=== PATIENT | male | born 1980 | race African-American/Black ===

== ENCOUNTER 2025-06-01 12:11 | Emergency (ER) | payer OTHER, SELFPAY ==
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
[2025-06-01 12:43] VITALS: BP 135/80; PULSE 100; RESP 16; TEMP 36.8; O2SAT 100
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
--- NOTE | 2025-06-01 13:08 | ECG_ITS ---
Test Date: 2025-06-01 13:45:43 Measurements Intervals Holmes Rate: 101 P: 65 OH: 141 QRS: 70 QRSD: 76 T: 34 QT: 337 QTc: 438 Interpretive Statements SINUS TACHYCARDIA VOLTAGE CRITERIA FOR LVH BORDERLINE T WAVE ABNORMALITY- INFERIOR LEADS BORDERLINE ECG No previous ECG available for comparison Electronically Signed On 06-01-2025 14:07:37 CDT by Luan Gardiner D.O.
[2025-06-01] MEDS: HYDROcodone/acetaminophen (*CRX) 5-325 MG TABLET 1 TAB PO (13:46)
[2025-06-01] MEDS: diazePAM INJ (*CRX) 10 MG/2 ML SYRINGE 5 MG IV PUSH (13:48)
[2025-06-01 13:54] LABS: Add Urine Microscopic? YES; Appearance Urine Cloudy (Clear); Glucose Urine UA Negative (Negative); Leukocyte Esterase Ur Trace LEU/UL (Negative); Nitrate Urine Negative (Negative); Non Pathogenic Casts 0-2; Specific Grav Ur 1.026 (1.001-1.035)
[2025-06-01 13:56] LABS: Hematocrit 39.8 % (42.0-52.0); Hemoglobin 14.0 g/dL (14.0-18.0); Immature Granulocyte Percent A 0.2 % (0-0.5); Lymphocytes Absolute Auto 2.17 K/mm3 (0.9-3.2); Mean Corpuscular HGB Conc 35.2 g/dl (32-36); Mean Corpuscular Hemoglobin 33.3 pg (26-34); Mean Corpuscular Volume 94.8 fl (80-100); Nucleated Red Blood Cells Absolute Auto 0.000 K/mm3 (0.0-0.012); Nucleated Red Blood Cells Perc 0.0 % (0.0-0.2); Platelet Count Result 335 k/mm3 (150-375); Red Blood Count 4.20 M/mm3 (4.6-6.20); White Blood Count 6.0 K/mm3 (4.5-10.0)
[2025-06-01 14:01] LABS: Alanine Aminotransferase 63 U/L (6-50); Albumin Level 4.5 g/dL (3.5-5.1); Alkaline Phosphatase 162 U/L (38-126); Anion Gap 9 mmol/L (4-12); Aspartate Amino Transferase 59 U/L (17-59); Bilirubin,Total 0.6 mg/dL (0.2-1.3); Blood Urea Nitrogen 13 mg/dL (9-20); Calcium 9.6 mg/dL (8.4-10.2); Carbon Dioxide 26 mmol/L (22-30); Chloride 108 mmol/L (98-107); Estimated CRCL calculation 103 ml/min; Estimated Glomerular Filt Rate > 60; Glucose 118 mg/dL (65-110); Lipase 93 U/L (23-300); Potassium 3.6 mmol/L (3.4-5.0); Sodium 143 mmol/L (137-145); Total Protein 7.5 g/dL (6.3-8.2)
--- OUTSIDE RECORDS SUMMARY | 2025-06-01 14:30 | XMS_ITS | Encounter Summary ---
Author Organization [facility] Address 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
--- OUTSIDE RECORDS SUMMARY | 2025-06-01 14:31 | XMS_ITS | Encounter Summary ---
Author Organization [facility] Address [address] [place] [address] Care Team Providers Care Wound Specialist Name Role Phone Unavailable Primary Care Provider Unavailabl e Encounter Details Date Type Department Care Team (Late st Contact Info) Description 05/31/2025 External Device Data [facility]CTION Provider, Abstract NO ADDRESS ON FILE Social History Tobacco Use Types Packs/Day Years Used Date Smoking Tobacco: Every Day Cigarettes Smokeless Tobacco: Never Alcohol Use Standard Drinks/Week Comments No 0 (1 standard drink = 0.6 oz pur e alcohol) Sex and Gender Information Value Date Recorded Sex Assigned at Not on file Legal Sex Male 

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
--- OUTSIDE RECORDS SUMMARY | 2025-06-01 14:31 | XMS_ITS | Clinical Summary ---
Author Organization [facility] Address [address] [place] [address] Phone Care Team Providers Care Decontamination Technician Name Role Phone Unavailable Primary Care Provider Unavailabl e Allergies No known active allergies Medications No known medications Active Problems Problem Noted Date Diagnosed Date Accidental drug overdose 10/22/2019 Altered mental status 10/22/2019 Hypoxia 10/22/2019 Seizure 10/02/2018 Polysubstance abuse 10/02/2018 Acute mid back pain 10/02/2018 Post-ictal state 10/02/2018 Acute low back pain Encounters Date Type Department Care Team Description 06/01/2025 9:40 AM CDT Video Visit [facility] [address] [place] [address] Roslyn Amaya MD Opioid use disorder (Primary Dx) 05/31/2025 External Device Data [facility]STRACTION Provider, Abstract 05/30/2025 Telephone [facility] [address] [place] [address] Yanelis Ta Enrollment from Last 3 Months Social History Tobacco Use Types Packs/Day Years Used Date Smoking Tobacco: Every Day Cigarettes Smokeless Tobacco: Never Alcohol Use Standard Drinks/Week Comments No 0 (1 standard drink = 0.6 oz pur e alcohol) Sex and Gender Information Value Date Recorded Sex Assigned at Not on file 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 Gender Identity Not on file Sexual Orientation Not on file Last Filed Vital Signs Vital Sign Reading Time Taken Comments Blood Pressure 145/88 06/03/2020 11:42 PM CDT Pulse 93 06/03/2020 11:42 PM CDT Temperature 37.1 C (98.8 F) 06/03/2020 9:57 PM CDT Respiratory Rate 30 06/03/2020 11:42 PM CDT Oxygen Saturation 95% 06/03/2020 11:42 PM CDT Inhaled Oxygen Concentration - - Weight 77.1 kg (170 lb) 06/03/2020 9:57 PM CDT Height 185.4 cm (6' 1) 06/03/2020 9:57 PM CDT Body Mass Index 22.43 06/03/2020 9:57 PM CDT Plan of Treatment Health Maintenance Due Date Last Done Comments HPV VACCINES (1 - Male 3-dose series) 1997 DTAP/TDAP/TD VACCINES (1 - Tdap) 2001 HEPATITIS B VACCINES (2 of 3 - Hep B Twinrix 3-dose series) 04/23/2023 03/26/2023 Preventative Visit- Commercial 10/13/2024 INFLUENZA VACCINE (#1) 2025 Insurance [facility] Advance Directives For more information, please contact: [phone] * Full Code (Latest Code Status on File) Date Activated Date Inactivated Comments 10/02/2018 4:21 AM 10/02/2018 5:09 PM
--- OUTSIDE RECORDS SUMMARY | 2025-06-01 14:31 | XMS_ITS | Clinical Summary ---
Author Organization [facility] Address [address] [place] [address] Care Team Providers Care Learning And Development Manager Name Role Phone Unavailable Primary Care Provider Unavailabl e Source Comments [facility],non-owned Affiliates and Associated Physician Practices is amultiple site organization consisting of ambulatory clinics and hospital sitesin [place], [place], [place] and [place]. This disclosure is being madepursuant to the Care Everywhere program and may not contain all information available regarding this patient. Last updated 18.[facility] Allergies No known active allergies Medications * This document contains information received from the source organization and may not represent a complete record from that organization. * Be aware that medications may not be up to date on this document. Alwaysverify current medications with the patient. hydrOXYzine HCl (Atarax) 50 MG tablet Take 1 (one) tablet by mouth every 6 hours as needed 120 tablet 1 04/28/2025 3:57 PM CDT 04/28/2025 Active clonazePAM (KlonoPIN) 0.5 MG tabletIndicatio ns:Anxiety Take 1 (one) tablet by mouth 2 times daily Reasons: Feeling Anxious 60 tablet 04/28/2025 3:57 PM CDT 04/28/2025 Active gabapentin (Neurontin) 400 MG capsule Take 1 (one) capsule by mouth 3 times daily 90 capsule 1 04/28/2025 3:57 PM CDT 04/28/2025 Active DULoxetine (Cymbalta) 30 MG capsule Take 1 (one) capsule by mouth once daily 30 capsule 1 04/28/2025 3:57 PM CDT 04/29/2025 Active traZODone (Desyrel) 50 MG tablet Take 1 (one) tablet by mouth nightly as needed for Insomnia 30 tablet 1 04/28/2025 3:57 PM CDT 04/28/2025 Active ondansetron, disintegrating, (Zofran ODT) 4 MG tablet Take 1 (one) tablet by mouth every 6 hours as needed for Nausea/Vomiti ng. Allow tablet to dissolve on the tongue. 30 tablet 04/28/2025 3:57 PM CDT 04/28/2025 Active lisinopril (Prinivil; Zestril) 20 MG tablet Take 1 (one) tablet by mouth once daily . 30 tablet 1 04/28/2025 3:57 PM CDT 04/29/2025 Active amLODIPine (Norvasc) 10 MG tablet Take 1 (one) tablet by mouth once daily . 30 tablet 1 04/28/2025 3:57 PM CDT 04/29/2025 Active nicotine (Nicoderm CQ) 21 MG/24HR patchIndication s:Nicotine use Apply 1 (one) patch to skin once daily 30 patch 04/28/2025 3:57 PM CDT 04/29/2025 Active Active Problems Problem Noted Date Diagnosed Date Current episode of major dep ressive disorder without prior episode, unspecified depression episode severity 04/19/2025 Hepatitis C 04/17/2025 Assessment & Plan (04/18/2025 7:25 AM CDT): F/u ID outpatient Assessment & Plan (04/17/2025 2:18 PM CDT): F/u ID outpatient Primary hypertension 04/15/2025 Assessment & Plan (04/18/2025 7:25 AM CDT): Primary HTN possibly compounded by withdrawal Previously prescribed hydralazine and clonidine Plan Amlo 10, lisinopril 20. Titrate BP meds as needed Assessment & Plan (04/17/2025 2:16 PM CDT): Primary HTN possibly compounded by withdrawal Previously prescribed hydralazine and clonidine Plan Amlo 10, lisinopril 20. Titrate BP meds as needed Assessment & Plan (04/16/2025 11:34 AM CDT): Primary HTN possibly compounded by withdrawal Previously prescribed hydralazine and clonidine Plan Amlo 10, lisinopril 20. Titrate BP meds as needed Assessment & Plan (04/15/2025 1:49 PM CDT): Primary HTN possibly compounded by withdrawal Previously prescribed hydralazine and clonidine Plan Amlo 10, start lisinopril 20. Titrate BP meds as needed Benzodiazepine withdrawal without complication 0 04/15/2025 Assessment & Plan (04/18/2025 11:47 AM CDT): Chronic Fentanyl and xanax use PLAN: -follow psychiatric recommendations: Hold psychotropic medications for now. D/c to inpatient psych pending medical clearance. Prn haldol -suicide precaution w 1:1 observation -COWs, methadone 50mg, titrate methadone and continue to monitor qtc. Likely inc to 60mg 04/19 - CIWA for benzo withdrawal, due to chronic use and hx of withdrawal seizure we will schedule klonopin 1mg bid w plan to taper over 3 weeks w 05/08 being EOT -supportive care (PRN: gabapentin, Tylenol, clonidine, Flexeril, Bentyl, Benadryl, Zofran atarax prn) -seizure/fall precautions -thiamine 100 mg daily. folic acid 1 mg PO d /multivitamin p.o. daily -nicotine patch 7 mg daily -counseling cessation -social service/ manager rn case consult Assessment & Plan (04/17/2025 2:23 PM CDT): Chronic Fentanyl and xanax use PLAN: -follow psychiatric recommendations: Hold psychotropic medications for now. D/c to inpatient psych pending medical clearance -suicide precaution w 1:1 observation -COWs, methadone 50mg, titrate methadone and continue to monitor qtc - CIWA for benzo withdrawal, due to chronic use and hx of withdrawal seizure we will schedule xanax 1mg bid w plan to continue taper outpatient -supportive care (PRN: gabapentin, Tylenol, clonidine, Flexeril, Bentyl, Benadryl, Zofran ) /encourage p.o. fluid -seizure/fall precautions -thiamine 100 mg daily. folic acid 1 mg PO d /multivitamin p.o. daily -nicotine patch 7 mg daily -counseling cessation -social service/ manager rn case consult Assessment & Plan (04/16/2025 11:34 AM CDT): Chronic Fentanyl and xanax use PLAN: -follow psychiatric recommendations: Hold psychotropic medications for now. D/c to inpatient psych pending medical clearance -suicide precaution w 1:1 observation -COWs, methadone 40mg, titrate methadone and continue to monitor qtc - CIWA for benzo withdrawal, prn diazepam. Will consider the need to continue taper outpatient. -supportive care (PRN: gabapentin, Tylenol, clonidine, Flexeril, Bentyl, Benadryl, Zofran ) /encourage p.o. fluid -seizure/fall precautions -thiamine 100 mg daily. folic acid 1 mg PO d /multivitamin p.o. daily -nicotine patch 7 mg daily -counseling cessation -social service/ manager rn case consult Assessment & Plan (04/15/2025 1:49 PM CDT): Chronic Fentanyl and xanax use PLAN: -follow psychiatric recommendations: Hold psychotropic medications for now. D/c to inpatient psych pending medical clearance -suicide precaution w 1:1 observation -COWs, methadone 40mg, titrate methadone and continue to monitor qtc - CIWA for benzo withdrawal, prn diazepam -supportive care (PRN: gabapentin, Tylenol, clonidine, Flexeril, Bentyl, Benadryl, Zofran ) /encourage p.o. fluid -seizure/fall precautions -thiamine 100 mg daily. folic acid 1 mg PO d /multivitamin p.o. daily -nicotine patch 7 mg daily -counseling cessation -social service/ manager rn case consult Suicidal ideation 04/14/2025 Assessment & Plan (04/18/2025 11:47 AM CDT): Chronic Fentanyl and xanax use PLAN: -follow psychiatric recommendations: Hold psychotropic medications for now. D/c to inpatient psych pending medical clearance. Prn haldol -suicide precaution w 1:1 observation -COWs, methadone 50mg, titrate methadone and continue to monitor qtc. Likely inc to 60mg 78 - CIWA for benzo withdrawal, due to chronic use and hx of withdrawal seizure we will schedule klonopin 1mg bid w plan to taper over 3 weeks w 05/08 being EOT -supportive care (PRN: gabapentin, Tylenol, clonidine, Flexeril, Bentyl, Benadryl, Zofran atarax prn) -seizure/fall precautions -thiamine 100 mg daily. folic acid 1 mg PO d /multivitamin p.o. daily -nicotine patch 7 mg daily -counseling cessation -social service/ manager rn case consult Assessment & Plan (04/17/2025 2:23 PM CDT): Chronic Fentanyl and xanax use PLAN: -follow psychiatric recommendations: Hold psychotropic medications for now. D/c to inpatient psych pending medical clearance -suicide precaution w 1:1 observation -COWs, methadone 50mg, titrate methadone and continue to monitor qtc - CIWA for benzo withdrawal, due to chronic use and hx of withdrawal seizure we will schedule xanax 1mg bid w plan to continue taper outpatient -supportive care (PRN: gabapentin, Tylenol, clonidine, Flexeril, Bentyl, Benadryl, Zofran ) /encourage p.o. fluid -seizure/fall precautions -thiamine 100 mg daily. folic acid 1 mg PO d /multivitamin p.o. daily -nicotine patch 7 mg daily -counseling cessation -social service/ manager rn case consult Assessment & Plan (04/16/2025 11:34 AM CDT): Chronic Fentanyl and xanax use PLAN: -follow psychiatric recommendations: Hold psychotropic medications for now. D/c to inpatient psych pending medical clearance -suicide precaution w 1:1 observation -COWs, methadone 40mg, titrate methadone and continue to monitor qtc - CIWA for benzo withdrawal, prn diazepam. Will consider the need to continue taper outpatient. -supportive care (PRN: gabapentin, Tylenol, clonidine, Flexeril, Bentyl, Benadryl, Zofran ) /encourage p.o. fluid -seizure/fall precautions -thiamine 100 mg daily. folic acid 1 mg PO d /multivitamin p.o. daily -nicotine patch 7 mg daily -counseling cessation -social service/ manager rn case consult Assessment & Plan (04/15/2025 1:49 PM CDT): Chronic Fentanyl and xanax use PLAN: -follow psychiatric recommendations: Hold psychotropic medications for now. D/c to inpatient psych pending medical clearance -suicide precaution w 1:1 observation -COWs, methadone 40mg, titrate methadone and continue to monitor qtc - CIWA for benzo withdrawal, prn diazepam -supportive care (PRN: gabapentin, Tylenol, clonidine, Flexeril, Bentyl, Benadryl, Zofran ) /encourage p.o. fluid -seizure/fall precautions -thiamine 100 mg daily. folic acid 1 mg PO d /multivitamin p.o. daily -nicotine patch 7 mg daily -counseling cessation -social service/ manager rn case consult Assessment & Plan (04/14/2025 2:42 AM CDT): -Psychiatry consulted in ED -admitted to medical service for 24 hour med observation/stabilization before transferred to psychiatric services PLAN: -follow psychiatric recommendations: Hold psychotropic medications for now. -suicide precaution w 1:1 observation -monitor for opioid withdrawal -supportive care (PRN: gabapentin, Tylenol, clonidine, Flexeril, Bentyl, Benadryl, Zofran ) /encourage p.o. fluid -seizure/fall precautions -NS 0.9%w multivitamin/ thiamine/ folic acid IV x 1 dose, followed by : -thiamine 100 mg PO D -folic acid 1 mg PO d /multivitamin p.o. daily -nicotine patch 7 mg daily -counseling cessation -consider addiction medicine consult in a.m. -social service/ manager rn case consult -UA drug screen SOB (shortness of breath) 04/14/2025 Assessment & Plan (04/18/2025 11:47 AM CDT): -hemodynamically stable, afebrile, no leukocytosis, on room air -BNP 64/ troponin nr x 2 . EKG NSR. TTE unremarkable CTM Assessment & Plan (04/17/2025 2:16 PM CDT): -hemodynamically stable, afebrile, no leukocytos -BNP 64/ troponin nr x 2 . EKG NSR. TTE unremarkable CTM Assessment & Plan (04/16/2025 11:34 AM CDT): -hemodynamically stable, afebrile, no leukocytosis; JESSICA 49 -BNP 64/ troponin nr x 2 . EKG NSR PLAN TTE to evaluate dyspnea on exertion : Assessment & Plan (04/15/2025 1:49 PM CDT): -hemodynamically stable, afebrile, no leukocytosis; JESSICA 47 -BNP 64/ troponin nr x 2 . EKG NSR PLAN TTE to evaluate dyspnea on exertion : Assessment & Plan (04/14/2025 2:45 AM CDT): -hemodynamically stable, afebrile, no leukocytosis; JESSICA 47 -BNP 64/ troponin nr x 2 - DDX : Cardiac ( pericarditis/ myocardial/ ACS) vs ID ( bacterial vs viral vs vs fungal ) vs GI vs musculoskeletal - CP positional/ worse with deep breathing and coughing- has hx of aspiration pneumonia/ empyema -would not exclude infectious process --Hypokalemia ( K 2.7) - s/p IV K mEq40 x 1 dose, K mEq 40 PO x 1 dose in ED -Hypochloremia ( Cl 97) -s/p NS 0.9% IV bolus in ED -hypoglycemia ( BG 64) PLAN: Chest pain, unspecified type 04/14/2025 Assessment & Plan (04/18/2025 11:47 AM CDT): -hemodynamically stable, afebrile, no leukocytosis, on room air -BNP 64/ troponin nr x 2 . EKG NSR. TTE unremarkable CTM Assessment & Plan (04/17/2025 2:16 PM CDT): -hemodynamically stable, afebrile, no leukocytos -BNP 64/ troponin nr x 2 . EKG NSR. TTE unremarkable CTM Assessment & Plan (04/16/2025 11:34 AM CDT): -hemodynamically stable, afebrile, no leukocytosis; JESSICA 47 -BNP 64/ troponin nr x 2 . EKG NSR PLAN TTE to evaluate dyspnea on exertion : Assessment & Plan (04/15/2025 1:49 PM CDT): -hemodynamically stable, afebrile, no leukocytosis; JESSICA 47 -BNP 64/ troponin nr x 2 . EKG NSR PLAN TTE to evaluate dyspnea on exertion : Assessment & Plan (04/14/2025 2:45 AM CDT): -hemodynamically stable, afebrile, no leukocytosis; JESSICA 47 -BNP 64/ troponin nr x 2 - DDX : Cardiac ( pericarditis/ myocardial/ ACS) vs ID ( bacterial vs viral vs vs fungal ) vs GI vs musculoskeletal - CP positional/ worse with deep breathing and coughing- has hx of aspiration pneumonia/ empyema -would not exclude infectious process --Hypokalemia ( K 2.7) - s/p IV K mEq40 x 1 dose, K mEq 40 PO x 1 dose in ED -Hypochloremia ( Cl 97) -s/p NS 0.9% IV bolus in ED -hypoglycemia ( BG 64) PLAN: OD (overdose of drug), inten tional self-harm, initial encounter 04/14/2025 Assessment & Plan (04/18/2025 11:47 AM CDT): Chronic Fentanyl and xanax use PLAN: -follow psychiatric recommendations: Hold psychotropic medications for now. D/c to inpatient psych pending medical clearance. Prn haldol -suicide precaution w 1:1 observation -COWs, methadone 50mg, titrate methadone and continue to monitor qtc. Likely inc to 60mg 04/19 - CIWA for benzo withdrawal, due to chronic use and hx of withdrawal seizure we will schedule klonopin 1mg bid w plan to taper over 3 weeks w 05/08 being EOT -supportive care (PRN: gabapentin, Tylenol, clonidine, Flexeril, Bentyl, Benadryl, Zofran atarax prn) -seizure/fall precautions -thiamine 100 mg daily. folic acid 1 mg PO d /multivitamin p.o. daily -nicotine patch 7 mg daily -counseling cessation -social service/ manager rn case consult Assessment & Plan (04/17/2025 2:23 PM CDT): Chronic Fentanyl and xanax use PLAN: -follow psychiatric recommendations: Hold psychotropic medications for now. D/c to inpatient psych pending medical clearance -suicide precaution w 1:1 observation -COWs, methadone 50mg, titrate methadone and continue to monitor qtc - CIWA for benzo withdrawal, due to chronic use and hx of withdrawal seizure we will schedule xanax 1mg bid w plan to continue taper outpatient -supportive care (PRN: gabapentin, Tylenol, clonidine, Flexeril, Bentyl, Benadryl, Zofran ) /encourage p.o. fluid -seizure/fall precautions -thiamine 100 mg daily. folic acid 1 mg PO d /multivitamin p.o. daily -nicotine patch 7 mg daily -counseling cessation -social service/ manager rn case consult Assessment & Plan (04/16/2025 11:34 AM CDT): Chronic Fentanyl and xanax use PLAN: -follow psychiatric recommendations: Hold psychotropic medications for now. D/c to inpatient psych pending medical clearance -suicide precaution w 1:1 observation -COWs, methadone 40mg, titrate methadone and continue to monitor qtc - CIWA for benzo withdrawal, prn diazepam. Will consider the need to continue taper outpatient. -supportive care (PRN: gabapentin, Tylenol, clonidine, Flexeril, Bentyl, Benadryl, Zofran ) /encourage p.o. fluid -seizure/fall precautions -thiamine 100 mg daily. folic acid 1 mg PO d /multivitamin p.o. daily -nicotine patch 7 mg daily -counseling cessation -social service/ manager rn case consult Assessment & Plan (04/15/2025 1:49 PM CDT): Chronic Fentanyl and xanax use PLAN: -follow psychiatric recommendations: Hold psychotropic medications for now. D/c to inpatient psych pending medical clearance -suicide precaution w 1:1 observation -COWs, methadone 40mg, titrate methadone and continue to monitor qtc - CIWA for benzo withdrawal, prn diazepam -supportive care (PRN: gabapentin, Tylenol, clonidine, Flexeril, Bentyl, Benadryl, Zofran ) /encourage p.o. fluid -seizure/fall precautions -thiamine 100 mg daily. folic acid 1 mg PO d /multivitamin p.o. daily -nicotine patch 7 mg daily -counseling cessation -social service/ manager rn case consult Assessment & Plan (04/14/2025 2:42 AM CDT): -Psychiatry consulted in ED -admitted to medical service for 24 hour med observation/stabilization before transferred to psychiatric services PLAN: -follow psychiatric recommendations: Hold psychotropic medications for now. -suicide precaution w 1:1 observation -monitor for opioid withdrawal -supportive care (PRN: gabapentin, Tylenol, clonidine, Flexeril, Bentyl, Benadryl, Zofran ) /encourage p.o. fluid -seizure/fall precautions -NS 0.9%w multivitamin/ thiamine/ folic acid IV x 1 dose, followed by : -thiamine 100 mg PO D -folic acid 1 mg PO d /multivitamin p.o. daily -nicotine patch 7 mg daily -counseling cessation -consider addiction medicine consult in a.m. -social service/ manager rn case consult -UA drug screen Electrolyte imbalance 04/14/2025 Drug abuse 04/14/2025 Assessment & Plan (04/18/2025 11:47 AM CDT): Chronic Fentanyl and xanax use PLAN: -follow psychiatric recommendations: Hold psychotropic medications for now. D/c to inpatient psych pending medical clearance. Prn haldol -suicide precaution w 1:1 observation -COWs, methadone 50mg, titrate methadone and continue to monitor qtc. Likely inc to 60mg 04/19 - CIWA for benzo withdrawal, due to chronic use and hx of withdrawal seizure we will schedule klonopin 1mg bid w plan to taper over 3 weeks w 05/08 being EOT -supportive care (PRN: gabapentin, Tylenol, clonidine, Flexeril, Bentyl, Benadryl, Zofran atarax prn) -seizure/fall precautions -thiamine 100 mg daily. folic acid 1 mg PO d /multivitamin p.o. daily -nicotine patch 7 mg daily -counseling cessation -social service/ manager rn case consult Assessment & Plan (04/17/2025 2:23 PM CDT): Chronic Fentanyl and xanax use PLAN: -follow psychiatric recommendations: Hold psychotropic medications for now. D/c to inpatient psych pending medical clearance -suicide precaution w 1:1 observation -COWs, methadone 50mg, titrate methadone and continue to monitor qtc - CIWA for benzo withdrawal, due to chronic use and hx of withdrawal seizure we will schedule xanax 1mg bid w plan to continue taper outpatient -supportive care (PRN: gabapentin, Tylenol, clonidine, Flexeril, Bentyl, Benadryl, Zofran ) /encourage p.o. fluid -seizure/fall precautions -thiamine 100 mg daily. folic acid 1 mg PO d /multivitamin p.o. daily -nicotine patch 7 mg daily -counseling cessation -social service/ manager rn case consult Assessment & Plan (04/16/2025 11:34 AM CDT): Chronic Fentanyl and xanax use PLAN: -follow psychiatric recommendations: Hold psychotropic medications for now. D/c to inpatient psych pending medical clearance -suicide precaution w 1:1 observation -COWs, methadone 40mg, titrate methadone and continue to monitor qtc - CIWA for benzo withdrawal, prn diazepam. Will consider the need to continue taper outpatient. -supportive care (PRN: gabapentin, Tylenol, clonidine, Flexeril, Bentyl, Benadryl, Zofran ) /encourage p.o. fluid -seizure/fall precautions -thiamine 100 mg daily. folic acid 1 mg PO d /multivitamin p.o. daily -nicotine patch 7 mg daily -counseling cessation -social service/ manager rn case consult Assessment & Plan (04/15/2025 1:49 PM CDT): Chronic Fentanyl and xanax use PLAN: -follow psychiatric recommendations: Hold psychotropic medications for now. D/c to inpatient psych pending medical clearance -suicide precaution w 1:1 observation -COWs, methadone 40mg, titrate methadone and continue to monitor qtc - CIWA for benzo withdrawal, prn diazepam -supportive care (PRN: gabapentin, Tylenol, clonidine, Flexeril, Bentyl, Benadryl, Zofran ) /encourage p.o. fluid -seizure/fall precautions -thiamine 100 mg daily. folic acid 1 mg PO d /multivitamin p.o. daily -nicotine patch 7 mg daily -counseling cessation -social service/ manager rn case consult Assessment & Plan (04/14/2025 2:42 AM CDT): -Psychiatry consulted in ED -admitted to medical service for 24 hour med observation/stabilization before transferred to psychiatric services PLAN: -follow psychiatric recommendations: Hold psychotropic medications for now. -suicide precaution w 1:1 observation -monitor for opioid withdrawal -supportive care (PRN: gabapentin, Tylenol, clonidine, Flexeril, Bentyl, Benadryl, Zofran ) /encourage p.o. fluid -seizure/fall precautions -NS 0.9%w multivitamin/ thiamine/ folic acid IV x 1 dose, followed by : -thiamine 100 mg PO D -folic acid 1 mg PO d /multivitamin p.o. daily -nicotine patch 7 mg daily -counseling cessation -consider addiction medicine consult in a.m. -social service/ manager rn case consult -UA drug screen Nicotine use 04/14/2025 Assessment & Plan (04/18/2025 11:47 AM CDT): Chronic Fentanyl and xanax use PLAN: -follow psychiatric recommendations: Hold psychotropic medications for now. D/c to inpatient psych pending medical clearance. Prn haldol -suicide precaution w 1:1 observation -COWs, methadone 50mg, titrate methadone and continue to monitor qtc. Likely inc to 60mg 04/19 - CIWA for benzo withdrawal, due to chronic use and hx of withdrawal seizure we will schedule klonopin 1mg bid w plan to taper over 3 weeks w 05/08 being EOT -supportive care (PRN: gabapentin, Tylenol, clonidine, Flexeril, Bentyl, Benadryl, Zofran atarax prn) -seizure/fall precautions -thiamine 100 mg daily. folic acid 1 mg PO d /multivitamin p.o. daily -nicotine patch 7 mg daily -counseling cessation -social service/ manager rn case consult Assessment & Plan (04/17/2025 2:23 PM CDT): Chronic Fentanyl and xanax use PLAN: -follow psychiatric recommendations: Hold psychotropic medications for now. D/c to inpatient psych pending medical clearance -suicide precaution w 1:1 observation -COWs, methadone 50mg, titrate methadone and continue to monitor qtc - CIWA for benzo withdrawal, due to chronic use and hx of withdrawal seizure we will schedule xanax 1mg bid w plan to continue taper outpatient -supportive care (PRN: gabapentin, Tylenol, clonidine, Flexeril, Bentyl, Benadryl, Zofran ) /encourage p.o. fluid -seizure/fall precautions -thiamine 100 mg daily. folic acid 1 mg PO d /multivitamin p.o. daily -nicotine patch 7 mg daily -counseling cessation -social service/ manager rn case consult Assessment & Plan (04/16/2025 11:34 AM CDT): Chronic Fentanyl and xanax use PLAN: -follow psychiatric recommendations: Hold psychotropic medications for now. D/c to inpatient psych pending medical clearance -suicide precaution w 1:1 observation -COWs, methadone 40mg, titrate methadone and continue to monitor qtc - CIWA for benzo withdrawal, prn diazepam. Will consider the need to continue taper outpatient. -supportive care (PRN: gabapentin, Tylenol, clonidine, Flexeril, Bentyl, Benadryl, Zofran ) /encourage p.o. fluid -seizure/fall precautions -thiamine 100 mg daily. folic acid 1 mg PO d /multivitamin p.o. daily -nicotine patch 7 mg daily -counseling cessation -social service/ manager rn case consult Assessment & Plan (04/15/2025 1:49 PM CDT): Chronic Fentanyl and xanax use PLAN: -follow psychiatric recommendations: Hold psychotropic medications for now. D/c to inpatient psych pending medical clearance -suicide precaution w 1:1 observation -COWs, methadone 40mg, titrate methadone and continue to monitor qtc - CIWA for benzo withdrawal, prn diazepam -supportive care (PRN: gabapentin, Tylenol, clonidine, Flexeril, Bentyl, Benadryl, Zofran ) /encourage p.o. fluid -seizure/fall precautions -thiamine 100 mg daily. folic acid 1 mg PO d /multivitamin p.o. daily -nicotine patch 7 mg daily -counseling cessation -social service/ manager rn case consult Assessment & Plan (04/14/2025 2:42 AM CDT): -Psychiatry consulted in ED -admitted to medical service for 24 hour med observation/stabilization before transferred to psychiatric services PLAN: -follow psychiatric recommendations: Hold psychotropic medications for now. -suicide precaution w 1:1 observation -monitor for opioid withdrawal -supportive care (PRN: gabapentin, Tylenol, clonidine, Flexeril, Bentyl, Benadryl, Zofran ) /encourage p.o. fluid -seizure/fall precautions -NS 0.9%w multivitamin/ thiamine/ folic acid IV x 1 dose, followed by : -thiamine 100 mg PO D -folic acid 1 mg PO d /multivitamin p.o. daily -nicotine patch 7 mg daily -counseling cessation -consider addiction medicine consult in a.m. -social service/ manager rn case consult -UA drug screen Episode of recurrent major depressive disorder 0 04/14/2025 Assessment & Plan (04/18/2025 11:47 AM CDT): Chronic Fentanyl and xanax use PLAN: -follow psychiatric recommendations: Hold psychotropic medications for now. D/c to inpatient psych pending medical clearance. Prn haldol -suicide precaution w 1:1 observation -COWs, methadone 50mg, titrate methadone and continue to monitor qtc. Likely inc to 60mg 04/19 - CIWA for benzo withdrawal, due to chronic use and hx of withdrawal seizure we will schedule klonopin 1mg bid w plan to taper over 3 weeks w 05/08 being EOT -supportive care (PRN: gabapentin, Tylenol, clonidine, Flexeril, Bentyl, Benadryl, Zofran atarax prn) -seizure/fall precautions -thiamine 100 mg daily. folic acid 1 mg PO d /multivitamin p.o. daily -nicotine patch 7 mg daily -counseling cessation -social service/ manager rn case consult Assessment & Plan (04/17/2025 2:23 PM CDT): Chronic Fentanyl and xanax use PLAN: -follow psychiatric recommendations: Hold psychotropic medications for now. D/c to inpatient psych pending medical clearance -suicide precaution w 1:1 observation -COWs, methadone 50mg, titrate methadone and continue to monitor qtc - CIWA for benzo withdrawal, due to chronic use and hx of withdrawal seizure we will schedule xanax 1mg bid w plan to continue taper outpatient -supportive care (PRN: gabapentin, Tylenol, clonidine, Flexeril, Bentyl, Benadryl, Zofran ) /encourage p.o. fluid -seizure/fall precautions -thiamine 100 mg daily. folic acid 1 mg PO d /multivitamin p.o. daily -nicotine patch 7 mg daily -counseling cessation -social service/ manager rn case consult Assessment & Plan (04/16/2025 11:34 AM CDT): Chronic Fentanyl and xanax use PLAN: -follow psychiatric recommendations: Hold psychotropic medications for now. D/c to inpatient psych pending medical clearance -suicide precaution w 1:1 observation -COWs, methadone 40mg, titrate methadone and continue to monitor qtc - CIWA for benzo withdrawal, prn diazepam. Will consider the need to continue taper outpatient. -supportive care (PRN: gabapentin, Tylenol, clonidine, Flexeril, Bentyl, Benadryl, Zofran ) /encourage p.o. fluid -seizure/fall precautions -thiamine 100 mg daily. folic acid 1 mg PO d /multivitamin p.o. daily -nicotine patch 7 mg daily -counseling cessation -social service/ manager rn case consult Assessment & Plan (04/15/2025 1:49 PM CDT): Chronic Fentanyl and xanax use PLAN: -follow psychiatric recommendations: Hold psychotropic medications for now. D/c to inpatient psych pending medical clearance -suicide precaution w 1:1 observation -COWs, methadone 40mg, titrate methadone and continue to monitor qtc - CIWA for benzo withdrawal, prn diazepam -supportive care (PRN: gabapentin, Tylenol, clonidine, Flexeril, Bentyl, Benadryl, Zofran ) /encourage p.o. fluid -seizure/fall precautions -thiamine 100 mg daily. folic acid 1 mg PO d /multivitamin p.o. daily -nicotine patch 7 mg daily -counseling cessation -social service/ manager rn case consult Assessment & Plan (04/14/2025 2:42 AM CDT): -Psychiatry consulted in ED -admitted to medical service for 24 hour med observation/stabilization before transferred to psychiatric services PLAN: -follow psychiatric recommendations: Hold psychotropic medications for now. -suicide precaution w 1:1 observation -monitor for opioid withdrawal -supportive care (PRN: gabapentin, Tylenol, clonidine, Flexeril, Bentyl, Benadryl, Zofran ) /encourage p.o. fluid -seizure/fall precautions -NS 0.9%w multivitamin/ thiamine/ folic acid IV x 1 dose, followed by : -thiamine 100 mg PO D -folic acid 1 mg PO d /multivitamin p.o. daily -nicotine patch 7 mg daily -counseling cessation -consider addiction medicine consult in a.m. -social service/ manager rn case consult -UA drug screen Hypokalemia 04/14/2025 Assessment & Plan (04/16/2025 11:34 AM CDT): -hemodynamically stable, afebrile, no leukocytosis; JESSICA 47 -BNP 64/ troponin nr x 2 . EKG NSR PLAN TTE to evaluate dyspnea on exertion : Assessment & Plan (04/15/2025 1:49 PM CDT): -hemodynamically stable, afebrile, no leukocytosis; JESSICA 47 -BNP 64/ troponin nr x 2 . EKG NSR PLAN TTE to evaluate dyspnea on exertion : Assessment & Plan (04/14/2025 2:45 AM CDT): -hemodynamically stable, afebrile, no leukocytosis; JESSICA 47 -BNP 64/ troponin nr x 2 - DDX : Cardiac ( pericarditis/ myocardial/ ACS) vs ID ( bacterial vs viral vs vs fungal ) vs GI vs musculoskeletal - CP positional/ worse with deep breathing and coughing- has hx of aspiration pneumonia/ empyema -would not exclude infectious process --Hypokalemia ( K 2.7) - s/p IV K mEq40 x 1 dose, K mEq 40 PO x 1 dose in ED -Hypochloremia ( Cl 97) -s/p NS 0.9% IV bolus in ED -hypoglycemia ( BG 64) PLAN: Suicide attempt 08/02/2019 Resolved Problems Problem Noted Date Diagnosed Date Resolved Date Hypoglycemia 04/14/2025 04/17/2025 Assessment & Plan (04/16/2025 11:34 AM CDT): -hemodynamically stable, afebrile, no leukocytosis; JESSICA 47 -BNP 64/ troponin nr x 2 . EKG NSR PLAN TTE to evaluate dyspnea on exertion : Assessment & Plan (04/15/2025 1:49 PM CDT): -hemodynamically stable, afebrile, no leukocytosis; JESSICA 47 -BNP 64/ troponin nr x 2 . EKG NSR PLAN TTE to evaluate dyspnea on exertion : Assessment & Plan (04/14/2025 2:45 AM CDT): -hemodynamically stable, afebrile, no leukocytosis; JESSICA 47 -BNP 64/ troponin nr x 2 - DDX : Cardiac ( pericarditis/ myocardial/ ACS) vs ID ( bacterial vs viral vs vs fungal ) vs GI vs musculoskeletal - CP positional/ worse with deep breathing and coughing- has hx of aspiration pneumonia/ empyema -would not exclude infectious process --Hypokalemia ( K 2.7) - s/p IV K mEq40 x 1 dose, K mEq 40 PO x 1 dose in ED -Hypochloremia ( Cl 97) -s/p NS 0.9% IV bolus in ED -hypoglycemia ( BG 64) PLAN: Encounters * This document contains information received from the source organization and may not represent a complete record from that organization. Date Type Department Care Team Description 06/01/2025 Travel 04/13/2025 8:59 PM CDT - 04/19/2025 4:18 PM CDT Hospital Encounter [facility] [address] ACUTE [address] [place] [address] Daron Gray MD Lorber, Steven A, MD Majeed, MD Albino Marks Akrin, MD Syed, Tatiana Kang MD Emergency Medicine Discharge Disposition: Psychiatric Hospital or Unit 04/13/2025 Travel from Last 3 Months Family History Medical History Relation Name Comments Schizophrenia Brother Hypertension Mother Relation Name Status Comments Brother Mother Social History Tobacco Use Types Packs/Day Years Used Date Smoking Tobacco: Every Day Cigarettes Smokeless Tobacco: Never Tobacco Cessation:Ready to Q uit: Not Asked; Counseling Given: Not Answered Alcohol Use Standard Drinks/Week Comments Yes 0 (1 standard drink = 0.6 oz pur e alcohol) occasional AUDIT-C Answer Date Recorded Q1: How often do you have a drink containing alcohol? Never 04/19/2025 Q2: How many drinks containi ng alcohol do you have on a typical day when you are drinking? Patient does not drink Q3: How often do you have si x or more drinks on one occasion? Never 04/19/2025 Overall Financial Resource Strain (CARDIA) Answe r Date Recorded How hard is it for you to pa y for the very basics like food, housing, medical care, and heating? Not very hard 04/19/2025 [facility] Occupat ional [facility] - Occupational Stress Questionnaire Answer Date Recorded Do you feel stress - tense, restless, nervous, or anxious, or unable to sleep at night because your mind is troubled all the time - these days? To some extent 04/19/2025 Hunger Vital Sign Answer Date Recorded Within the past 12 months, y ou worried that your food would run out before you got the money to buy more. Never true 04/19/20 25 Within the past 12 months, t he food you bought just didn't last and you didn't have money to get more. Never true 04/19/2025 PRAPARE - Transportation Answer Date Re corded In the past 12 months, has l ack of transportation kept you from medical appointments or from getting medications? No 05/2025 In the past 12 months, has l ack of transportation kept you from meetings, work, or from getting things needed for daily living? No 04/19/2025 Housing Stability Vital Sign Answer Josiah e Recorded In the last 12 months, was t here a time when you were not able to pay the mortgage or rent on time? No 04/19/2025 In the past 12 months, how m any times have you moved where you were living? 1 04/19/2025 At any time in the past [address] [facility], were you homeless or living in a fdc (including now)? No 04/19/2025 Sex and Gender Information Value Date Recorded Sex Assigned at Male 04/16/2025 2:44 AM CDT Legal Sex Male 5:33 AM [employer] Gender Identity Male 04/16/2025 2:44 AM CDT Sexual Orientation Straight 04/16/2025 2: 44 AM CDT Last Filed Vital Signs Vital Sign Reading Time Taken Comments Blood Pressure 113/82 04/29/2025 7:23 AM CDT Pulse 73 04/29/2025 7:23 AM CDT Temperature 36 C (96.8 F) 04/29/2025 7:23 AM CDT Respiratory Rate 18 04/29/2025 7:23 AM CDT Oxygen Saturation 99% 04/29/2025 7:23 AM CDT Inhaled Oxygen Concentration - - Weight 81.7 kg (180 lb 3.2 oz) 04/24/2025 8:06 A M CDT Height 185.4 cm (6' 1) 04/19/2025 4:21 PM CDT Body Mass Index 23.77 04/19/2025 4:21 PM CDT Plan of Treatment Upcoming Encounters Date Type Department Care Team (Late st Contact Info) Description 06/02/2025 1:45 PM CDT Office Visit [facility] - Internal Med [address] [facility] [place] [id number] Hari Stiles MD [address] [facility] [place] [address] Health Maintenance Due Date Last Done Comments DTAP/TDAP/TD VACCINES (1 - Tdap) 2001 HEPATITIS B VACCINE (1 of 3 - 19+ 3-dose series) 2001 PNEUMOCOCCAL VACCINE (1 of 2 - PCV) 2001 HPV VACCINE (1 - 3-dose SCDM series) 2009 COVID-19 VACCINE (1 - season) 2024 DEPRESSION SCREENING 10/13/2024 INFLUENZA VACCINE (#1) 2025 07/13/2015 LIPID TESTING 04/16/2030 04/16/2025 ZOSTER VACCINE (1 of 2) 2032 HIV SCREENING Completed 08/02/2019 HEPATITIS C SCREENING Completed 04/17/2025 , 04/14/2025, 04/14/2025, Additional history exists HIB VACCINE Aged Out No longer eligi ble based on patient's age to complete this topic MENINGOCOCCAL (Group B) VACCINE SHARED DECISION-MAKING Aged Out No longer eligible based on patient's age to complete this topic MENINGOCOCCAL GROUPS A/C/Y/W VACCINE Aged Out No longer eligible based on patient's age to complete this topic Procedures Procedure Name Priority Date/Time Associated Diagnosis Comments EKG 12-LEAD Routine 04/19/2025 10:35 AM CDT Suicidal ideation OD (overdose of drug), intentional self-harm, initial encounter ([facility]) PHOSPHORUS BLOOD Routine 04/19/2025 2:19 AM CDT MAGNESIUM BLOOD Routine 04/19/2025 2:19 AM CDT BASIC METABOLIC PANEL (CALCIUM TOTAL) AM Draw 04/19/2025 2:19 AM CDT GLUCOSE - POINT OF CARE Routine 04/17/2025 4:31 PM CDT GLUCOSE - POINT OF CARE Routine 04/17/2025 11:49 AM CDT EKG 12-LEAD Routine 04/17/2025 11:13 AM CDT Suicidal ideation MAGNESIUM BLOOD Routine 04/17/2025 7:49 AM CDT CBC W/O DIFFERENTIAL AM Draw 04/17/2025 7:49 AM CDT GLUCOSE - POINT OF CARE Routine 04/17/2025 6:06 AM CDT GLUCOSE - POINT OF CARE Routine 04/17/2025 12:18 AM CDT GLUCOSE - POINT OF CARE Routine 04/16/2025 5:30 PM CDT T4 FREE Routine 04/16/2025 12:11 PM CDT TSH REFLEX FREE T4 Routine 04/16/2025 12 :11 PM CDT PHOSPHORUS BLOOD Routine 04/16/2025 12:1 1 PM CDT MAGNESIUM BLOOD Routine 04/16/2025 12:11 PM CDT LIPID PROFILE Routine 04/16/2025 12:11 PM CDT BASIC METABOLIC PANEL (CALCIUM TOTAL) Routine 04/16/2025 12:11 PM CDT GLUCOSE - POINT OF CARE Routine 04/16/2025 11:47 AM CDT ECHO COMPLETE Routine 04/16/2025 10:49 AM CDT Chest pain, unspecified type GLUCOSE - POINT OF CARE Routine 04/16/2025 5:36 AM CDT GLUCOSE - POINT OF CARE Routine 04/15/2025 11:33 PM CDT GLUCOSE - POINT OF CARE Routine 04/15/2025 6:31 PM CDT GLUCOSE - POINT OF CARE Routine 04/15/2025 6:05 PM CDT GLUCOSE - POINT OF CARE Routine 04/15/2025 11:56 AM CDT EKG 12-LEAD Routine 04/15/2025 11:32 AM CDT Suicidal ideation OD (overdose of drug), intentional self-harm, initial encounter ([facility]) CBC W/O DIFFERENTIAL AM Draw 04/15/2025 3:44 AM CDT HEPATITIS C RNA QUANTITATIVE Routine 04/14/2025 3:25 PM CDT HEPATITIS C AB SCREEN RFLX NAAT QUANT Routine 04/14/2025 3:25 PM CDT CARDIAC EKG ORDER 04/14/2025 11: 09 AM CDT B-TYPE NATRIURETIC PEPTIDE STAT 04/14/2025 5:09 AM CDT URINALYSIS REFLEX TO MICROSCOPIC NO CULTURE STAT 04/14/2025 4:42 AM CDT URINE DRUG SCREEN IMMUNOASSAY STAT 04/14/2025 4:42 AM CDT PROCALCITONIN LEVEL STAT 04/14/2025 4 :39 AM CDT HEMOGLOBIN A1C QUOC 04/14/2025 4:39 AM CDT PT-INR [facility] STAT 04/14/2025 4:39 AM CDT CBC W/O DIFFERENTIAL STAT 04/14/2025 4:39 AM CDT LACTIC ACID BLOOD STAT 04/14/2025 4:[address] CHEST ABDOMEN PELVIS W CONT Routine 04/14/2025 3:01 AM CDT Chest pain, unspecified type Suicidal ideation SOB (shortness of breath) OD (overdose of drug), intentional self-harm, initial encounter ([facility]) ALCOHOL ETHYL BLOOD STAT 04/13/2025 8 :45 PM CDT B-TYPE NATRIURETIC PEPTIDE STAT 04/13/2025 8:45 PM CDT PT-INR [facility] STAT 04/13/2025 8:45 PM CDT MAGNESIUM BLOOD STAT 04/13/2025 8:45 PM CDT TROPONIN-I HIGH SENSITIVE STAT 04/13/2025 8:45 PM CDT COMPREHENSIVE METABOLIC PANEL STAT 04/13/2025 8:45 PM CDT CBC W AUTO DIFFERENTIAL STAT 04/13/2025 8:45 PM CDT XR CHEST 1VW PORTABLE STAT 04/13/2025 8:01 PM CDT Chest pain, unspecified type HIV-1 HIV-2 ANTIGEN/ANTIBODY STAT 08/02/2019 9:08 PM CDT from Last 3 Months or Most Recently Relevant to Health Maintenance Results * EKG 12-Lead (04/19/2025 10:35 AM CDT) Only the most recent of3 resultswithin the time period is included. Pathologist [facility] Ventricular Rate [address] [facility] Atrial Rate [address] [facility] P-R Interval [address] [facility] QRS Duration ms [address] [facility] Q-T Interval ms [address] [facility] QTC Calculation (Bezet) [address] [facility] Calculated P [place] [address] [facility] Calculated R [place] [address] [facility] Calculated T [place] [address] [facility] Interpretation EKG NORMAL SINUS RHYTHM NONSPECIFIC T WAVE ABNORMALITY ABNORMAL ECG WHEN COMPARED WITH ECG OF 17-APR-2025 11:13, NO SIGNIFICANT CHANGE WAS FOUND Confirmed by YIMI MCCORMICK, KEYLA CASTELLANOS ([id number]) on 04/23/2025 2:50:[address] [facility] 04/19/2025 10:3 5 AM CDT 04/23/2025 2:50 PM CDT us Schuyler Posada MD ECG ORDERABLES Edited Result - Final [facility] * (ABNORMAL) BASIC METABOLIC PANEL (CALCIUM TOTAL) (04/19/2025 2:19 AM CDT) Only the most recent of2 resultswithin the time period is included. Pathologist [facility] BUN 12 7 - 26 mg/dL 04/19/2025 3:[address] [facility] Creatinine 0.96 mg/dL 04/19/2025 3:[address] [facility] Sodium 142 136 - 145 mmol/L 04/19/2025 3:[address] [facility] Potassium 4.3 3.5 - 4.5 mmol/L 04/19/2025 3:[address] [facility] Chloride 109(H) 98 - 107 mmol/L 04/19/2025 3:[address] [facility] CO2 26 22 - 29 mmol/L 04/19/2025 3:[address] [facility] Glucose 94 70 - 99 mg/dL 04/19/2025 3:[address] [facility] Calcium 9.0 8.4 - 10.2 mg/dL 04/19/2025 3:[address] [facility] Anion Gap 7 6 - 16 04/19/2025 3:[address] [facility] BUN/Creatinine Ratio 13 7 - 23 04/19/2025 3:[address] [facility] Osmolality Calculated 294 275 - 295 mOsm/kg 04/19/2025 3:[address] [facility] eGFR by CKD-EPI >90 >=90 mL/min/1.7 3 m2 04/19/2025 3:[address] [facility] Comment:Estimated Glomerular Filtration Rate (eGFR) calculated using the CKD-EPI Creatinine Equation (2020), per the National Kidney Foundation and [place] [employer]ph[employer] recommendations. Blood BLOOD SPECIMEN / Unknown Lab Venipuncture / Unknown 04/19/2025 2:19 AM CDT 04/19/2025 2:33 AM CDT Schuyler Posada MD LAB - CHEMISTRY ORDERABLES Fin al Result Performing Organization Address City/[facility]/ZIP Co de Phone Number [facility] [address] [place] [address], [facility] [phone] * PHOSPHORUS BLOOD (04/19/2025 2:19 AM CDT) Only the most recent of2 resultswithin the time period is included. Phosphorus 3.9 mg/dL 04/19/2025 3:01 AM T [facility] Blood BLOOD SPECIMEN / Unknown Lab Venipuncture / Unknown 04/19/2025 2:19 AM CDT 04/19/2025 2:33 AM CDT Schuyler Posada MD LAB - CHEMISTRY ORDERABLES Fin al Result [address] [address], [facility] [phone] * MAGNESIUM BLOOD (04/19/2025 2:19 AM CDT) Only the most recent of4 resultswithin the time period is included. Pathologist [facility] Magnesium 1.6 1.6 - 2.6 mg/dL 04/19/2025 3:01 AM CDT [facility] Blood BLOOD SPECIMEN / Unknown Lab Venipuncture / Unknown 04/19/2025 2:19 AM CDT 04/19/2025 2:33 AM CDT Schuyler Posada MD LAB - CHEMISTRY ORDERABLES Fin al Result Performing Organization Address [facility] Co de Phone Number [address] [address], [facility] [phone] * GLUCOSE - POINT OF CARE (04/17/2025 4:31 PM CDT) Only the most recent of11 resultswithin the time period is included. [facility] Glucose WB/POC 93 70 - 99 mg/dL 04/17/2025 4:35 PM CDT [facility] Specimen Type Arterial/C apillary 04/17/2025 4:35 PM CDT [facility] Blood BLOOD SPECIMEN / Unknown 04/17/2025 4:31 PM CDT 04/17/2025 4:35 PM CDT Schuyler Posada MD LAB - POINT OF CARE ORDERABLES Final Result Performing Organization Address City/[facility]/ZIP Co de Phone Number [address] [address], [facility] [phone] * (ABNORMAL) CBC W/O DIFFERENTIAL (04/17/2025 7:49 AM CDT) Only the most recent of3 resultswithin the time period is included. Pathologist [facility] WBC 3.9(L) 4.0 - 10.7 x10E9/L 04/17/2025 8:[address] [facility] RBC Count 4.10(L) 4.30 - 5.80 x10E12/L 04/17/2025 8:[address] [facility] Hemoglobin 13.9 13.3 - 17.5 g/dL 04/17/2025 8:[address] [facility] Hematocrit 38.0(L) 38.7 - 51.1 % 04/17/2025 8:[address] [facility] MCV 92.7 80.0 - 98.0 fL 04/17/2025 8:[address] [facility] MCH 33.9(H) 26.7 - 33.6 pg 04/17/2025 8:[address] [facility] MCHC 36.6(H) 31.7 - 36.3 g/dL 04/17/2025 8:[address] [facility] RDW-CV 12.2 11.3 - 14.8 % 04/17/2025 8:[address] [facility] Platelet Count 311 150 - 420 x10E9/L 04/17/2025 8:[address] [facility] MPV 9.6 7.8 - 11.4 fL 04/17/2025 8:[address] [facility] Blood BLOOD SPECIMEN / Unknown Lab Venipuncture / Unknown 04/17/2025 7:49 AM CDT 04/17/2025 8:25 AM CDT us Schuyler Posada MD LAB - HEMATOLOGY ORDERABLES Fi nal Result [facility] [address] [place] [address], [facility] [phone] * (ABNORMAL) TSH REFLEX FREE T4 (04/16/2025 12:11 PM CDT) TSH 0.148(L) 0.350 - 4.940 uIU/mL 04/16/2025 1:[address] [facility] Blood BLOOD SPECIMEN / Unknown Lab Venipuncture / Unknown 04/16/2025 12:11 PM CDT 04/16/2025 12:36 PM CDT Schuyler Posada MD LAB - CHEMISTRY ORDERABLES Fin al Result [address] [address], [facility] [phone] * T4 FREE (04/16/2025 12:11 PM CDT) T4 Free 0.9 0.7 - 1.5 ng/dL 04/16/2025 1:[address] [facility] Blood BLOOD SPECIMEN / Unknown Lab Venipuncture / Unknown 04/16/2025 12:11 PM CDT 04/16/2025 12:36 PM CDT Schuyler Posada MD LAB - CHEMISTRY ORDERABLES Fin al Result Performing Organization Address City/[facility]/ZIP Co de Phone Number [address] [address], [facility] [phone] * LIPID PROFILE (04/16/2025 12:11 PM CDT) Cholesterol Total 139 <200 mg/dL 04/16/2025 1:[address] [facility] HDL 48 >40 mg/dL 04/16/2025 1:[address] [facility] Comment: ATP III Classification of HDL Cholesterol: <40 mg/dL: Considered a major risk factor. >60 mg/dL: Considered a negative risk factor. LDL Calculated 76 <100 mg/dL 04/16/2025 1:[address] [facility] Comment: ATP III Classification of LDL Cholesterol: <100 mg/dL: Optimal 100 - 129 mg/dL: Near Optimal/Above Optimal 130 - 159 mg/dL: Borderline High 160 - 189 mg/dL: High >190 mg/dL: Very High LDL is calculated using the Friedewald equation. Triglycerides 75 <150 mg/dL 04/16/2025 1:[address] [facility] Comment: ATP III Classification of Triglycerides: <150 mg/dL: Normal 150 - 199 mg/dL: Borderline High 200 - 400 mg/dL: High >500 mg/dL: Very High Blood BLOOD SPECIMEN / Unknown Lab Venipuncture / Unknown 04/16/2025 12:11 PM CDT 04/16/2025 12:36 PM CDT us Schuyler Posada MD LAB - CHEMISTRY ORDERABLES Fin al Result Performing Organization Address City/[facility]/ZIP Co de Phone Number [facility] [address] [address], [facility] [phone] * ECHO COMPLETE (04/16/2025 10:49 AM CDT) AV area index 1.766 cm /m SSM CV FUJI PACS LA vol index 0.033 l/m [facility]SM CV FUJI PACS Dimensionless Index 0.906 unitless SSM CV FUJI PACS Myocardial strain charge 2 unitless SSM CV FUJI PACS IVSd 2D 0.848 cm SSM CV FUJ I PACS LVIDd 5.064 cm SSM CV FUJ I PACS LVIDs 3.21 cm SSM CV FUJ I PACS LVOT diam 2.215 cm SSM CV FUJ I PACS LVPWd 1.157 cm SSM CV FUJ I PACS LV biplane EF 62.33 % SSM CV FUJI PACS LV A2C EF 65.428 % SSM CV FUJ I PACS LV A4C EF 57.432 % SSM CV FUJ I PACS LV EDV A2C 88.252 ml SSM CV FU JI PACS LV EDV A4C 89.256 ml SSM CV FU JI PACS LV ESV A2C 30.51 ml SSM CV FU JI PACS LV ESV A4C 37.995 ml SSM CV FU JI PACS LVOT pk grad 5.099 mmHg SSM CV FUJI PACS LVOT pk cristopher 112.902 cm/s SSM CV F UJI PACS LVOT VTI 22.35 cm SSM CV FUJ I PACS RV-lara basal diam 4.039 cm SSM CV FUJI PACS RVIDd 3.486 cm SSM CV FUJ I PACS RVOT diam Doppler 2.538 cm SS M CV FUJI PACS RVOT pk cristopher 90.524 cm/s SSM CV F UJI PACS RVOT VTI 18.45 cm SSM CV FUJ I PACS LA size 3.569 cm SSM CV FUJ I PACS LA vol BP 65.386 ml SSM CV FUJ I PACS RA area 17.866 cm SSM CV FUJI PACS AV area pk cristopher 3.511 cm SSM CV FUJI PACS AV area cont VTI 3.492 cm SSM CV FUJI PACS AV pk grad 6.143 mmHg SSM CV FU JI PACS AV mn grad 3.163 mmHg SSM CV FU JI PACS AV pk cristopher 123.928 cm/s SSM CV FUJ I PACS AV VTI 24.665 cm SSM CV FUJ I PACS MV A pk cristopher 59.979 cm/s SSM CV F UJI PACS MV E pk cristopher 68.188 cm/s SSM CV F UJI PACS MV E' lateral cristopher 8.677 cm/s SS M CV FUJI PACS MV mn grad 0.658 mmHg SSM CV FU JI PACS MV VTI 18.728 cm SSM CV FUJ I PACS PV pk cristopher 109.694 cm/s SSM CV FUJ I PACS PV VTI 19.076 cm SSM CV FUJ I PACS TAPSE 2.22 cm SSM CV FUJ I PACS TR pk cristopher 251.069 cm/s SSM CV FUJ I PACS Ascending aorta 2.877 cm SSM CV FUJI PACS IVC Diam Expiration 1.48 cm SSM CV FUJI PACS Anatomical Region Laterality Modality Ultrasound 04/16/2025 10:2 4 AM CDT Narrative 04/16/2025 5:47 PM CDT Summary * The left ventricular mass is normal with concentric remodeling. * The left ventricle is normal in size. * Left ventricular segmental wall motion is normal. * Left ventricular systolic function is normal with an estimated ejection fraction of 60-65% by visual estimate. * The left ventricular diastolic function is normal. * The pulmonary artery systolic pressure is normal, 28 mmHg. * Right ventricle is normal in size with normal systolic function. * No significant valvular abnormalities. Patient Info Name: Benjamín Richards Age: 45 years : 1980 Gender: Male Ht: 73 in Wt: 168 lb BSA: 1.98 m2 HR: 79 bpm BP: 140 / 91 mmHg Heart Rhythm: Sinus Rhythm Exam Date: 04/16/2025 10:24 AM Patient Status: I/P Study Site: [facility] Primary Location: [facility] Info Technical Quality: Good Exam Type: ECHO COMPLETE Indications R07.9 - Chest pain, unspecified type Procedure(s) * A complete 2D, color Doppler, spectral Doppler, and M-Mode transthoracic echocardiogram was performed. Staff Referring Physician: Tsering Gomes Ordering Provider: Tsering Gomes Attending Physician: Tsering Gomes Chair And Couch Maker: Navjot Ward Left Ventricle The left ventricular mass is normal with concentric remodeling. The left ventricle is normal in size. Left ventricular segmental wall motion is normal. Left ventricular systolic function is normal with an estimated ejection fraction of 60-65% by visual estimate. The left ventricular diastolic function is normal. Right Ventricle The right ventricle is normal in size. Right ventricular systolic function is normal. Left Atrium The left atrium is normal in size with a left atrial volume index of 33 ml/m2 by BP MOD. Right Atrium The right atrium is normal in size. Atrial Septum Intact interatrial septum visualized by 2D and color Doppler imaging. Aortic Valve The aortic valve is trileaflet. There is no aortic valve stenosis. There is no aortic valve regurgitation. Pulmonic Valve The pulmonic valve is normal. There is no pulmonic valve stenosis. There is mild pulmonic regurgitation. Mitral Valve The mitral valve is normal. There is no mitral valve stenosis. There is no mitral valve regurgitation. Tricuspid Valve The tricuspid valve is normal. There is mild tricuspid valve regurgitation. The pulmonary artery systolic pressure is normal, 28 mmHg. Inferior Vena Cava The inferior vena cava is normal in size (< 2.1 cm). There is > 50% collapse of the IVC upon inspiration with an estimated right atrial pressure of 3 mmHg. Pericardium/Pleural There is no pericardial effusion. Aorta The aortic root at the sinus of Valsalva is normal in size. The ascending aorta is normal in size. Measurements Left Ventricular Outflow Tract Name Value Normal LVOT 2D LVOT Diameter 2.2 cm LVOT Area 3.9 cm2 LVOT Doppler LVOT Peak Velocity 1.1 m/s LVOT Peak Gradient 5 mmHg LVOT Mean Velocity 82.42 cm/s LVOT Mean Gradient 3 mmHg LVOT VTI 22.4 cm LVOT VTI/AV VTI Ratio 0.9 LVOT Stroke Volume 86 ml LVOT Stroke Volume Index 44 ml/m2 35-58 LVOT CO 6.8 l/min LVOT CI 3.4 l/min/m2 Pulmonic Valve Name Value Normal PV 2D RVOT Diameter (2D) 2.5 cm 1.7-2.7 RVOT Doppler RVOT Peak Velocity 0.9 m/s RVOT Peak Gradient 3 mmHg RVOT Mean Gradient 2 mmHg PV Doppler PV Peak Velocity 1.1 m/s PV Peak Gradient 5 mmHg PV Mean Gradient 2 mmHg PV Area (Cont Eq VTI) 4.89 cm2 PV Area Index (Cont Eq VTI) 2.47 cm2/m2 PV Area (Cont Eq Cristopher) 4.2 cm2 PV Area Index (Cont Eq Cristopher) 2.11 cm2/m2 Mitral Valve Name Value Normal MV Doppler MV Peak Gradient 2 mmHg MV Mean Gradient 1 mmHg MV DI (VTI) 0.84 MV Area (Cont Eq VTI) 4.60 cm2 MV Diastolic Function MV E Peak Velocity 0.7 m/sec MV A Peak Velocity 0.6 m/sec MV E/A 1.1 MV Decel Time (PW) 175 ms MV A Wave Duration 117 ms MV Annular TDI MV Septal e' Velocity 7 cm/s >=8 MV E/e' (Septal) 9 <=8 MV Lateral e' Velocity 9 cm/s >=10 MV E/e' (Lateral) 8 <=8 MV e' Average 8 cm/s MV E/e' (Average) 9 Tricuspid Valve Name Value Normal TV Regurgitation Doppler TR Peak Velocity 2.5 m/s TR Peak Gradient 25 mmHg Estimated PAP/RSVP RA Pressure 3 mmHg <=5 PA Systolic Pressure 28 mmHg <35 RV Systolic Pressure 28 mmHg <36 TV Annular TDI TV Lateral Denise s' Velocity 12 cm/s 10-19 Aorta Name Value Normal Ascending Aorta Asc Ao Diameter 2.9 cm 2.2-3.8 Asc Ao Diameter Index 1.5 cm/m2 1.1-1.9 Septae/Shunt/Generic Name Value Normal Qp/Qs Qp/Qs 1.1 Venous Name Value Normal IVC/SVC IVC Diameter 1.5 cm <=2.1 Aortic Valve Name Value Normal AV Doppler AV Peak Velocity 1.24 m/s AV Peak Gradient 6 mmHg AV Mean Gradient 3 mmHg AV VTI 25 cm AV Area (Cont Eq VTI) 3.49 cm2 >=2.00 AV Area (Cont Eq Cristopher) 3.51 cm2 AV DI (VTI) 0.91 AV DI (Cristopher) 0.91 AV Regurgitation 2D LVOT Area 3.85 cm2 Ventricles Name Value Normal LV Dimensions 2D/MM IVS Diastolic Thickness (2D) 0.8 cm 0.6-1.0 LVID Diastole (2D) 5.1 cm 4.2-5.8 LVPW Diastolic Thickness (2D) 1.2 cm 0.6-1.0 IVS Systolic Thickness (2D) 1.2 cm LVID Systole (2D) 3.2 cm 2.5-4.0 LVPW Systolic Thickness (2D) 1.1 cm LV Mass (2D Cubed) 135 g 88-224 LV Mass Index (2D Cubed) 68 g/m2 49-115 Relative Wall Thickness (2D) 0.46 <=0.42 LV Fractional Shortening/Ejection Fraction 2D/MM LV Fractional Shortening (2D) 37 % 25-43 LV EF (2D Teicholz) 66 % 52-72 LV Diastolic Volume (4C MOD) 89 ml LV EF (4C MOD) 57 % LV Diastolic Volume (2C MOD) 88 ml LV EF (2C MOD) 65 % LV Diastolic Volume (BP MOD) 91 ml 62-150 LV Diastolic Volume Index (BP MOD) 46 ml/m2 34-74 LV Systolic Volume (BP MOD) 34 ml 21-61 LV Systolic Volume Index (BP MOD) 17 ml/m2 11-31 LV EF (BP MOD) 62 % 52-72 LV Diastolic Length (4C) 8.8 cm LV Systolic Length (4C) 7.5 cm LV Stroke Volume (4C MOD) 51 ml RV Dimensions 2D/MM RVID Diastole (2D) 3.5 cm 2.5-3.5 RVID Systole (2D) 2.7 cm RV Basal Diastolic Dimension 4.0 cm 2.5-4.1 RV Diastolic Length (4C) 6.7 cm 5.9-8.3 TAPSE 2.2 cm >=1.7 Atria Name Value Normal LA Dimensions LA Dimension (2D) 3.6 cm 3.0-4.1 LA Dimen Index (2D) 1.8 cm/m2 LA Volume (BP MOD) 65 ml LA Volume Index (BP MOD) 33 ml/m2 16-34 RA Dimensions RA Area (4C) 18 cm2 <=18 RA Area (4C) Index 9 cm2/m2 Report Signatures Finalized by La Rodarte MD on 04/16/2025 05:47 PM Procedure Note La Rodarte MD - 04/16/2025 Summary * The left ventricular mass is normal with concentric remodeling. * The left ventricle is normal in size. * Left ventricular segmental wall motion is normal. * Left ventricular systolic function is normal with an estimatedejection fraction of 60-65% by visual estimate. * The left ventricular diastolic function is normal. * The pulmonary artery systolic pressure is normal, 28 mmHg. * Right ventricle is normal in size with normal systolic function. * No significant valvular abnormalities. Patient Info Name: Benjamín Richards Age: 45 years : 1980 Gender: Male Ht: 73 in Wt: 168 lb BSA: 1.98 m2 HR: 79 bpm BP: 140 / 91 mmHg Heart Rhythm: Sinus Rhythm Exam Date: 04/16/2025 10:24 AM Patient Status: I/P Study Site: [facility] Primary Location: [facility] Info Technical Quality: Good Exam Type: ECHO COMPLETE Indications R07.9 - Chest pain, unspecified type Procedure(s) * A complete 2D, color Doppler, spectral Doppler, and M-Modetransthoracic echocardiogram was performed. Staff Referring Physician: Tsering Gomes Ordering Provider: Tsering Gomes Attending Physician: Tsering Gomes Chair And Couch Maker: Navjot Ward Left Ventricle The left ventricular mass is normal with concentric remodeling. Theleft ventricle is normal in size. Left ventricular segmental wall motion isnormal. Left ventricular systolic function is normal with an estimated ejection fraction of 60-65% by visual estimate. The left ventricular diastolicfunction is normal. Right Ventricle The right ventricle is normal in size. Right ventricular systolicfunction is normal. Left Atrium The left atrium is normal in size with a left atrial volume index of33 ml/m2 by BP MOD. Right Atrium The right atrium is normal in size. Atrial Septum Intact interatrial septum visualized by 2D and color Doppler imaging. Aortic Valve The aortic valve is trileaflet. There is no aortic valve stenosis. Thereis no aortic valve regurgitation. Pulmonic Valve The pulmonic valve is normal. There is no pulmonic valve stenosis. Thereis mild pulmonic regurgitation. Mitral Valve The mitral valve is normal. There is no mitral valve stenosis. There isno mitral valve regurgitation. Tricuspid Valve The tricuspid valve is normal. There is mild tricuspid valveregurgitation. The pulmonary artery systolic pressure is normal, 28 mmHg. Inferior Vena Cava The inferior vena cava is normal in size (< 2.1 cm). There is > 50%collapse of the IVC upon inspiration with an estimated right atrial pressure of 3mmHg. Pericardium/Pleural There is no pericardial effusion. Aorta The aortic root at the sinus of Valsalva is normal in size. Theascending aorta is normal in size. Measurements Left Ventricular Outflow Tract Name Value Normal LVOT 2D LVOT Diameter 2.2 cm LVOT Area 3.9 cm2 LVOT Doppler LVOT Peak Velocity 1.1 m/s LVOT Peak Gradient 5 mmHg LVOT Mean Velocity 82.42 cm/s LVOT Mean Gradient 3 mmHg LVOT VTI 22.4 cm LVOT VTI/AV VTI Ratio 0.9 LVOT Stroke Volume 86 ml LVOT Stroke Volume Index 44 ml/m2 35-58 LVOT CO 6.8 l/min LVOT CI 3.4 l/min/m2 Pulmonic Valve Name Value Normal PV 2D RVOT Diameter (2D) 2.5 cm 1.7-2.7 RVOT Doppler RVOT Peak Velocity 0.9 m/s RVOT Peak Gradient 3 mmHg RVOT Mean Gradient 2 mmHg PV Doppler PV Peak Velocity 1.1 m/s PV Peak Gradient 5 mmHg PV Mean Gradient 2 mmHg PV Area (Cont Eq VTI) 4.89 cm2 PV Area Index (Cont Eq VTI) 2.47 cm2/m2 PV Area (Cont Eq Cristopher) 4.2 cm2 PV Area Index (Cont Eq Cristopher) 2.11 cm2/m2 Mitral Valve Name Value Normal MV Doppler MV Peak Gradient 2 mmHg MV Mean Gradient 1 mmHg MV DI (VTI) 0.84 MV Area (Cont Eq VTI) 4.60 cm2 MV Diastolic Function MV E Peak Velocity 0.7 m/sec MV A Peak Velocity 0.6 m/sec MV E/A 1.1 MV Decel Time (PW) 175 ms MV A Wave Duration 117 ms MV Annular TDI MV Septal e' Velocity 7 cm/s >=8 MV E/e' (Septal) 9 <=8 MV Lateral e' Velocity 9 cm/s >=10 MV E/e' (Lateral) 8 <=8 MV e' Average 8 cm/s MV E/e' (Average) 9 Tricuspid Valve Name Value Normal TV Regurgitation Doppler TR Peak Velocity 2.5 m/s TR Peak Gradient 25 mmHg Estimated PAP/RSVP RA Pressure 3 mmHg <=5 PA Systolic Pressure 28 mmHg <35 RV Systolic Pressure 28 mmHg <36 TV Annular TDI TV Lateral Denise s' Velocity 12 cm/s 10-19 Aorta Name Value Normal Ascending Aorta Asc Ao Diameter 2.9 cm 2.2-3.8 Asc Ao Diameter Index 1.5 cm/m2 1.1-1.9 Septae/Shunt/Generic Name Value Normal Qp/Qs Qp/Qs 1.1 Venous Name Value Normal IVC/SVC IVC Diameter 1.5 cm <=2.1 Aortic Valve Name Value Normal AV Doppler AV Peak Velocity 1.24 m/s AV Peak Gradient 6 mmHg AV Mean Gradient 3 mmHg AV VTI 25 cm AV Area (Cont Eq VTI) 3.49 cm2 >=2.00 AV Area (Cont Eq Cristopher) 3.51 cm2 AV DI (VTI) 0.91 AV DI (Cristopher) 0.91 AV Regurgitation 2D LVOT Area 3.85 cm2 Ventricles Name Value Normal LV Dimensions 2D/MM IVS Diastolic Thickness (2D) 0.8 cm 0.6-1.0 LVID Diastole (2D) 5.1 cm 4.2-5.8 LVPW Diastolic Thickness (2D) 1.2 cm 0.6-1.0 IVS Systolic Thickness (2D) 1.2 cm LVID Systole (2D) 3.2 cm 2.5-4.0 LVPW Systolic Thickness (2D) 1.1 cm LV Mass (2D Cubed) 135 g 88-224 LV Mass Index (2D Cubed) 68 g/m2 49-115 Relative Wall Thickness (2D) 0.46 <=0.42 LV Fractional Shortening/Ejection Fraction 2D/MM LV Fractional Shortening (2D) 37 % 25-43 LV EF (2D Teicholz) 66 % 52-72 LV Diastolic Volume (4C MOD) 89 ml LV EF (4C MOD) 57 % LV Diastolic Volume (2C MOD) 88 ml LV EF (2C MOD) 65 % LV Diastolic Volume (BP MOD) 91 ml 62-150 LV Diastolic Volume Index (BP MOD) 46 ml/m2 34-74 LV Systolic Volume (BP MOD) 34 ml 21-61 LV Systolic Volume Index (BP MOD) 17 ml/m2 11-31 LV EF (BP MOD) 62 % 52-72 LV Diastolic Length (4C) 8.8 cm LV Systolic Length (4C) 7.5 cm LV Stroke Volume (4C MOD) 51 ml RV Dimensions 2D/MM RVID Diastole (2D) 3.5 cm 2.5-3.5 RVID Systole (2D) 2.7 cm RV Basal Diastolic Dimension 4.0 cm 2.5-4.1 RV Diastolic Length (4C) 6.7 cm 5.9-8.3 TAPSE 2.2 cm >=1.7 Atria Name Value Normal LA Dimensions LA Dimension (2D) 3.6 cm 3.0-4.1 LA Dimen Index (2D) 1.8 cm/m2 LA Volume (BP MOD) 65 ml LA Volume Index (BP MOD) 33 ml/m2 16-34 RA Dimensions RA Area (4C) 18 cm2 <=18 RA Area (4C) Index 9 cm2/m2 Report Signatures Finalized by La Rodarte MD on 04/16/2025 05:47 PM us Tsering Valentino Eliseo [employer] E[employer] Final Re sult * (ABNORMAL) HEPATITIS C AB SCREEN RFLX NAAT QUANT (04/14/2025 3:25 PM CDT) [facility] Hepatitis C Antibody Reactive( A) Non-react dg 04/14/2025 4:[address] [facility] Comment:Serum for supplement al Hepatitis C quantitative RNA PCR testing will be reflexively sent out by the lab. Blood BLOOD SPECIMEN / Unknown Lab Venipuncture / Unknown 04/14/2025 3:25 PM CDT 04/14/2025 3:28 PM CDT us Schuyler Posada MD LAB - CHEMISTRY ORDERABLES Fin al Result Performing Organization Address City/State/[facility] Co de Phone Number [facility] [address] [address], [facility] [phone] * (ABNORMAL) HEPATITIS C RNA QUANTITATIVE (04/14/2025 3:25 PM CDT) [facility] Hepatitis C Virus Quant by PCR, Blood 10,200,00 0(H) Not detected IU/mL 04/16/2025 1:53 PM CDT [facility] Hepatitis C RNA PCR, Interp Detected( A) Not detected 04/16/2025 1:53 PM CDT [facility] Hepatitis C Quant by PCR, Log 7.01 log IU/mL 04/16/2025 1:53 PM CDT [facility] Blood BLOOD SPECIMEN / Unknown Lab Venipuncture / Unknown 04/14/2025 3:25 PM CDT 04/14/2025 4:19 PM CDT Narrative [facility] - 04/16/2025 1:53 PM CDT The Hepatitis C viral (HCV) RNA analysis utilized a serum sample, real-time reverse director of marketing [employer] PCR, and is reported as Not Detected, Detected (<15 IU/mL), Quantity (IU/mL) or >100,000,000 IU/mL. The analytic sensitivity (LOD) of the assay is 15 IU/mL. The linear range is from 15 IU/mL to 100,000,000 IU/mL. Values less than 15 IU/mL are reported as Detected (<15 IU/mL). Values greater than 100,000,000 IU/mL are reported as >100,000,000 IU/mL. The detection/quantitation of HCV RNA in serum is based on the isolation of HCV RNA with reverse director of marketing [employer] of genomic HCV RNA followed by real-time PCR in the presence of an unrelated RNA internal control. The internal control ensures that RNA is isolated, and that no general significant inhibitors of the RT-PCR process are present. The analysis was performed using a U.S. FDA approved test methodology Sarah abilio HCV. us Schuyler Posada MD LAB - CHEMISTRY ORDERABLES Fin al Result [facility] [address] [facility] [place] [address], [facility] [phone] * CARDIAC EKG ORDER (04/14/2025 11:09 AM CDT) Narrative 04/14/2025 11:09 AM CDT Ordered by an unspecified provider. us Scanned Document CARDIAC SERVICES ORDERABLES Fin al Result * B-TYPE NATRIURETIC PEPTIDE (04/14/2025 5:09 AM CDT) Only the most recent of2 resultswithin the time period is included. BNP 27 <100 pg/mL 04/14/2025 5:44 AM CDT [facility] Comment: A decision threshold of 100 pg/mL has been demonstrated to provide the maximal combination of sensitivity, specificity and predictive value for the diagnosis of congestive heart failure (CHF). Virtually all patients with no evidence of CHF have BNP values less than 100 pg/mL. A BNP value greater than 100 pg/mL is consistent with the diagnosis of CHF in the appropriate clinical setting. In a study of 693 patients (male and female) with diagnosed CHF, the following values were determined based on the NYHA functional classification system: NYHA Functional Class Mean Valule (pg/mL) % >100 pg/mL I 320 58.1 II 432 73.0 III 656 79.0 IV 1635 98.3 Blood BLOOD SPECIMEN / Unknown Venipuncture / Unknown 04/14/2025 5:09 AM CDT 04/14/2025 5:27 AM CDT Tsering COLLAZO LAB - CHEMISTRY ORDERABL ES Final Result [facility] [address] [place] [address], [facility] [phone] * (ABNORMAL) URINALYSIS REFLEX TO MICROSCOPIC NO CULTURE (04/14/2025 4:42 AM CDT) Color UA Yellow Yellow, Straw 04/14/2025 5:20 AM CDT [facility] Clarity UA Clear Clear 04/14/2025 5:20 AM CDT [facility] Glucose UA Normal Normal 04/14/2025 5:20 AM CDT [facility] Bilirubin UA Negative Negative 04/14/2025 5:20 AM CDT [facility] Ketone UA Negative Negative 04/14/2025 5:20 AM T [facility] Specific [place] UA >1.050(H) 1.005 - 1.030 04/14/2025 5:20 AM T [facility] Blood UA Negative Negative 04/14/2025 5:20 AM T [facility] pH UA 6.0 5.0 - 8.0 04/14/2025 5:20 AM T [facility] Protein UA Trace(A) Negative 04/14/2025 5:20 AM T [facility] Urobilinogen UA 12.0(A) Normal mg/dL 04/14/2025 5:20 AM T [facility] Nitrite UA Negative Negative 04/14/2025 5:20 AM T [facility] Leukocyte Esterase UA Negative Negative 04/14/2025 5:20 AM T [facility] Urine Microscopy Urine microscopy not indicated 04/14/2025 5:20 AM T [facility] Urine URINE SPECIMEN OBTAINED BY CLEAN CATCH PROCEDURE / Unknown Collection / Unknown 04/14/2025 4:42 AM CDT 04/14/2025 4:59 AM CDT Tsering [facility] LAB - URINALYSIS ORDERAB LES Final Result [address] [address], [facility] [phone] * (ABNORMAL) URINE DRUG SCREEN IMMUNOASSAY (04/14/2025 4:42 AM CDT) [facility] Amphetamines Screen Urine Negative Negative : < 1000 ng/mL 04/14/2025 5:[address] [facility] Barbiturates Screen Urine Negative Negative : < 200 ng/mL 04/14/2025 5:[address] [facility] Benzodiazepine Screen Urine Positive(A) Negative : < 200 ng/mL 04/14/2025 5:[address] [facility] Comment: Positive urine benzodiazepine screening results should be confirmed by another generally accepted non-immunological method such as gas chromatography or mass spectrometry. Opiates Urine Negative Negative : < 300 ng/mL 04/14/2025 5:[address] [facility] Cocaine Metabolites Urine Positive(A) Negative : < 300 ng/mL 04/14/2025 5:[address] [facility] Comment: Positive urine cocaine metabolites screening results should be confirmed by another generally accepted non-immunological method such as gas chromatography or mass spectrometry. Phencyclidine Screen Urine Negative Negative : < 25 ng/ml 04/14/2025 5:[address] [facility] Cannabinoids Screen Urine Positive(A) Negative : <50 ng/mL 04/14/2025 5:[address] [facility] Comment:Positive urine canna binoids (THC) screening results should be confirmed by another generally accepted non-immunological method such as gas chromatography or mass spectrometry. Methadone Screen Urine Negative Negative : < 300 ng/mL 04/14/2025 5:[address] [facility] Fentanyl Screen Urine Positive(A) Negative : <1.5 ng/mL 04/14/2025 5:[address] [facility] Comment:Positive urine fenta nyl screening results should be confirmed by another generally accepted non-immunological method such as gas chromatography or mass spectrometry. Urine URINE / Unknown Collection / Unknown 04/14/2025 4:42 AM CDT 04/14/2025 4:59 AM CDT Narrative [facility] - 04/14/2025 5:22 AM CDT The Urine Toxicology Screening Panel does not screen for Propoxyphene, Meprobamate, Carisoprodol, Trazodone, flgn-oui-ozxoicm medications and/or volatiles (Acetone, Isopropanol, Methanol or Ethylene Glycol). Ethanol, Salicylate, Acetaminophen, Tricyclic Antidepressants and several therapeutic drugs may be individually assayed in serum or plasma specimen. Toxicology testing by the [facility] is an aid to medical diagnosis and treatment of patients. No documented chain of custody was maintained. Results are intended to be used for clinical purposes only. Tsering Gomes [facility] - URINE CHEMISTRY OR DERABLES Final Result Performing Organization Address [facility]/ZIP Co de Phone Number [address] [address], [facility] [phone] * PT-INR [facility] (04/14/2025 4:39 AM CDT) Only the most recent of2 resultswithin the time period is included. PT 13.6 12.1 - 14.8 Seconds 04/14/2025 5:25 AM CDT [facility] INR 1.1 See Comment 04/14/2025 5:25 AM CDT [facility] Comment:The suggested therap eutic range for standard coumadin (warfarin) therapy is an INR of 2.0-3.0. For high-risk patients (Mechanical Mitral Valve Prosthesis, etc.), the suggested prophylactic therapeutic range is an INR of 2.5-3.5. Blood BLOOD SPECIMEN / Unknown Venipuncture / Unknown 04/14/2025 4:39 AM CDT 04/14/2025 5:02 AM CDT Tsering Gomes [facility] - COAGULATION ORDERA BLES Final Result Performing Organization Address [facility]/ZIP Co de Phone Number [address] [address], [place] [phone] * PROCALCITONIN LEVEL (04/14/2025 4:39 AM CDT) PROCALCITONIN 0.03 <=0.10 ng/mL 04/14/2025 5:47 AM CDT [facility] Blood BLOOD SPECIMEN / Unknown Venipuncture / Unknown 04/14/2025 4:39 AM CDT 04/14/2025 4:59 AM CDT Narrative [facility] - 04/14/2025 5:47 AM CDT The change in procalcitonin (PCT) concentration over time provides support in decision making on antibiotic discontinuation for suspected or confirmed septic patients. Follow-up samples should be tested once every 1-2 days based upon physician discretion taking into account the patient s evolution and progress. Consider discontinuation of antibiotic therapy if the PCT current is <= 0.5 ng/mL or if the delta PCT is > 80%. Duration of antibiotics should not be determined solely on PCT; established guidelines for the indication should be followed. PCT peak: Highest observed PCT concentration PCT current: Most recent PCT concentration Calculate delta PCT using the following equation: Delta PCT = PCT Peak PCT current X 100% PCT Peak The Change in Procalcitonin Calculator is available at [email or web address] If clinical picture has not improved and PCT remains high, reevaluate and consider treatment failure or other causes. Tsering Gomes [employer] LAB - CHEMISTRY ORDERABL ES Final Result Performing Organization Address City/State/[facility] Co de Phone Number [address] [address], [facility] [phone] * HEMOGLOBIN A1C (04/14/2025 4:39 AM CDT) Hemoglobin A1c 5.4 <=5.6 % 04/14/2025 8:53 AM CDT [facility] Estimated Average Glucose 108 mg/dL 04/14/2025 8:53 AM CDT [facility] Comment: HbA1c Interpretation: Normal : < 5.7% Pre-diabetes: 5.7-6.4% Diabetes: Equal to or greater than 6.5% Test results diagnostic of diabetes should be repeated for confirmation. Treatment target values recommended by ADA and other clinical organizations should be used to evaluate metabolic control in patients. Reference: [place] [employer], Standards of Care in Diabetes -2020 In patients 70 years and older consider HbA1c target range of 7.0-7.5% (Reference: Surya Jefferson et al. TAO. 2012) The Sebia assay for the measurement of HbA1c is a National Glycohemoglobin Standardization Program (NGSP) certified method. Blood BLOOD SPECIMEN / Unknown Venipuncture / Unknown 04/14/2025 4:39 AM CDT 04/14/2025 5:08 AM CDT Tsering [facility] LAB - CHEMISTRY ORDERABL ES Final Result [address] [address], [place] [phone] * (ABNORMAL) LACTIC ACID BLOOD (04/14/2025 4:39 AM CDT) Lactic Acid-Stat 2.2(H) <=2.0 mmol/L 04/14/2025 5:36 AM CDT [facility] Blood BLOOD SPECIMEN / Unknown Venipuncture / Unknown 04/14/2025 4:39 AM CDT 04/14/2025 5:02 AM CDT Tsering Gomes [facility] LAB - CHEMISTRY ORDERABL ES Final Result Performing Organization Address City/[facility]/ZIP Co de Phone Number [address] [address], [place] [phone] * CT Chest Abdomen Pelvis W Cont (04/14/2025 3:01 AM CDT) Anatomical Region Laterality Modality Chest, Abdomen, Pelvis Computed Tomography 04/14/2025 3:43 AM CDT Impressions 04/14/2025 7:00 AM CDT Impression: 1.Mild debris within the trachea and right main bronchus. Groundglass opacities in the right lung base, may represent combination of aspiration and dependent atelectasis. 2.No acute process identified in the abdomen or pelvis. 3.Right testicle is seen in the region of the distal inguinal canal, correlate with the clinical exam finding to exclude undescended testis. > Dictated by Jerry Heath MD, (Digital Media Representative). I, Kathryn Post MD have personally reviewed and interpreted this examination/study. > Interpreting Provider: Kathryn Post MD on 04/14/2025 7:00 AM Narrative 04/14/2025 7:00 AM CDT PROCEDURE: CT CHEST ABDOMEN PELVIS W CONT, DATE/TIME OF EXAM: 04/14/2025 3:02 AM, LOCATION [facility] INDICATION: R07.9: Chest pain, unspecified type R45.851: Suicidal ideation R06.02: SOB (shortness of breath) T50.902A: OD (overdose of drug), intentional self-harm, initial encounter ([facility]) ADDITIONAL CLINICAL INFORMATION: Ordering Provider Reason For Exam: Infectious process COMPARISON: None. TECHNIQUE: CT of the chest, abdomen, and pelvis was performed following the uneventful administration of 100 mL of Isovue 370 intravenous contrast according to standard protocol. Findings: Lower Neck and Axillae: Normal. Lungs: Mild debris seen within the trachea and right main bronchus. Groundglass opacities in the right lung base, may represent combination of aspiration and dependent atelectasis. Mild dependent atelectasis at the left lung base. Emphysematous changes in the lung apices. No suspicious pulmonary nodules are identified. No pleural fluid or pneumothorax is present. Heart and Pericardium: The cardiac chambers are normal in size. No pericardial fluid or thickening is present. Mediastinum and Nelly: No enlarged lymph nodes are present. Thoracic Vasculature: No vascular abnormality is present. Liver: Normal. Gallbladder and Bile Ducts: Normal. Spleen: Normal. A small splenule. Pancreas: Normal. Adrenals: Normal. Kidneys: Normal. Gastrointestinal: The stomach and visualized loops of large and small bowel are unremarkable. Hyperdense materials are noted in the small bowel loops in the mid abdomen, likely related to some ingested substance possibly medications. Normal appendix. Mesentery/Peritoneum/Retroperitoneum: Normal. Bladder: Normal. Reproductive Organs: The prostate is normal. Right testicle is seen in the region of the distal right inguinal canal, correlate with the clinical exam finding to exclude undescended testis. Vasculature: No vascular abnormality is present. Bones: Bone windows demonstrate no suspicious lytic or blastic lesions. The visible osseous structures are intact. There is a 17 x 9 mm intraosseous lipoma in the right iliac bone. Soft tissues: Normal. Procedure Note Kathryn Post MD - 04/14/2025 PROCEDURE: CT CHEST ABDOMEN PELVIS W CONT, DATE/TIME OF EXAM: 04/14/2025 3:02 AM, LOCATION [facility] INDICATION: R07.9: Chest pain, unspecified type R45.851: Suicidal ideation R06.02: SOB (shortness of breath) T50.902A: OD (overdose of drug), intentional self-harm, initialencounter ([facility]) ADDITIONAL CLINICAL INFORMATION: Ordering Provider Reason For Exam: Infectious process COMPARISON: None. TECHNIQUE: CT of the chest, abdomen, and pelvis was performed followingthe uneventful administration of 100 mL of Isovue 370 intravenous contrast according to standard protocol. Findings: Lower Neck and Axillae: Normal. Lungs: Mild debris seen within the trachea and right main bronchus. Groundglass opacities in the right lung base, may represent combination ofaspiration and dependent atelectasis. Mild dependent atelectasis at the left lung base. Emphysematous changes in the lung apices. No suspicious pulmonary nodules are identified. No pleural fluid or pneumothorax is present. Heart and Pericardium: The cardiac chambers are normal in size. No pericardial fluid orthickening is present. Mediastinum and Nelly: No enlarged lymph nodes are present. Thoracic Vasculature: No vascular abnormality is present. Liver: Normal. Gallbladder and Bile Ducts: Normal. Spleen: Normal. A small splenule. Pancreas: Normal. Adrenals: Normal. Kidneys: Normal. Gastrointestinal: The stomach and visualized loops of large and small bowel areunremarkable. Hyperdense materials are noted in the small bowel loops in the midabdomen, likely related to some ingested substance possibly medications. Normal appendix. Mesentery/Peritoneum/Retroperitoneum: Normal. Bladder: Normal. Reproductive Organs: The prostate is normal. Right testicle is seen in the region of thedistal right inguinal canal, correlate with the clinical exam finding toexclude undescended testis. Vasculature: No vascular abnormality is present. Bones: Bone windows demonstrate no suspicious lytic or blastic lesions. The visible osseous structures are intact. There is a 17 x 9 mm intraosseous lipoma in the right iliac bone. Soft tissues: Normal. Impression: 1.Mild debris within the trachea and right main bronchus. Groundglass opacities in the right lung base, may represent combination ofaspiration and dependent atelectasis. 2.No acute process identified in the abdomen or pelvis. 3.Right testicle is seen in the region of the distal inguinal canal, correlate with the clinical exam finding to exclude undescended testis. > Dictated by Jerry Heath MD, (Digital Media Representative). I, Kathryn Post MD have personally reviewed and interpreted this examination/study. > Interpreting Provider: Kathryn Post MD on 04/14/2025 7:00AM Tsering Gomes [employer] CT ORDERABLES Final Re sult * TROPONIN-I HIGH SENSITIVE (04/13/2025 8:45 PM CDT) [facility] Troponin I High Sensitive 4 <=35 ng/L 04/13/2025 9:22 PM CDT [facility] Blood BLOOD SPECIMEN / Unknown Venipuncture / Unknown 04/13/2025 8:45 PM CDT 04/13/2025 8:49 PM CDT Nadege Ham PA-C LAB - CHEMISTRY ORDERABLES Final Result [facility] [address] [place] [address], [facility] [phone] * (ABNORMAL) CBC W AUTO DIFFERENTIAL (04/13/2025 8:45 PM CDT) [facility] WBC 5.1 4.0 - 10.7 x10E9/L 04/13/2025 9:02 PM CDT [facility] RBC Count 4.41 4.30 - 5.80 x10E12/L 04/13/2025 9:02 PM CDT [facility] Hemoglobin 14.8 13.3 - 17.5 g/dL 04/13/2025 9:[address] [facility] Hematocrit 39.6 38.7 - 51.1 % 04/13/2025 9:[address] [facility] MCV 89.8 80.0 - 98.0 fL 04/13/2025 9:[address] [facility] MCH 33.6 26.7 - 33.6 pg 04/13/2025 9:[address] [facility] MCHC 37.4(H) 31.7 - 36.3 g/dL 04/13/2025 9:[address] [facility] RDW-CV 11.9 11.3 - 14.8 % 04/13/2025 9:[address] [facility] Platelet Count 317 150 - 420 x10E9/L 04/13/2025 9:[address] [facility] MPV 9.3 7.8 - 11.4 fL 04/13/2025 9:[address] [facility] Neutrophil % 56.4 41.0 - 74.0 % 04/13/2025 9:[address] [facility] Lymphocyte % 34.4 17.0 - 47.0 % 04/13/2025 9:[address] [facility] Monocyte % 5.1 3.0 - 11.0 % 04/13/2025 9:[address] [facility] Eosinophil % 3.5 0.0 - 7.0 % 04/13/2025 9:[address] [facility] Basophil % 0.4 0.0 - 1.6 % 04/13/2025 9:[address] [facility] Immature Granulocytes % 0.2 0.0 - 1.0 % 04/13/2025 9:[address] [facility] Neutrophil Absolute 2.88 1.60 - 7.50 x10E9/L 04/13/2025 9:[address] [facility] Lymphocyte Absolute 1.76 1.00 - 4.40 x10E9/L 04/13/2025 9:[address] [facility] Monocyte Absolute 0.26 0.15 - 1.00 x10E9/L 04/13/2025 9:[address] [facility] Eosinophil Absolute 0.18 0.00 - 0.60 x10E9/L 04/13/2025 9:[address] [facility] Basophil Absolute 0.02 0.00 - 0.13 x10E9/L 04/13/2025 9:[address] [facility] Blood BLOOD SPECIMEN / Unknown Venipuncture / Unknown 04/13/2025 8:45 PM CDT 04/13/2025 8:49 PM CDT us Nadege Ham PA-C LAB - HEMATOLOGY ORDERABLES Final Result [facility] [address] [place] [address], [facility] [phone] * (ABNORMAL) COMPREHENSIVE METABOLIC PANEL (04/13/2025 8:45 PM CDT) BUN 7 7 - 26 mg/dL 04/13/2025 9:[address] [facility] Creatinine 0.75 0.71 - 1.16 mg/dL 04/13/2025 9:[address] [facility] Sodium 138 136 - 145 mmol/L 04/13/2025 9:[address] [facility] Potassium 2.7(L) 3.5 - 4.5 mmol/L 04/13/2025 9:[address] [facility] Chloride 97(L) 98 - 107 mmol/L 04/13/2025 9:[address] [facility] CO2 31(H) 22 - 29 mmol/L 04/13/2025 9:[address] [facility] Glucose 64(L) 70 - 99 mg/dL 04/13/2025 9:[address] [facility] Calcium 9.4 8.4 - 10.2 mg/dL 04/13/2025 9:[address] [facility] Protein Total 7.3 6.0 - 8.3 g/dL 04/13/2025 9:[address] [facility] Albumin 4.5 3.4 - 5.0 g/dL 04/13/2025 9:[address] [facility] Bilirubin Total 0.8 0.2 - 1.2 mg/dL 04/13/2025 9:[address] [facility] Alkaline Phosphatase 142 40 - 150 U/L 04/13/2025 9:[address] [facility] ALT 25 5 - 55 U/L 04/13/2025 9:[address] [facility] AST 31 5 - 34 U/L 04/13/2025 9:[address] [facility] Anion Gap 10 6 - 16 04/13/2025 9:[address] [facility] BUN/Creatinine Ratio 9 7 - 23 04/13/2025 9:[address] [facility] Osmolality Calculated 282 275 - 295 mOsm/kg 04/13/2025 9:[address] [facility] Albumin/Globulin Ratio 1.6 1.1 - 2.3 04/13/2025 9:[address] [facility] eGFR by CKD-EPI >90 >=90 mL/min/1.7 3 m2 04/13/2025 9:[address] [facility] Comment:Estimated Glomerular Filtration Rate (eGFR) calculated using the CKD-EPI Creatinine Equation (2020), per the National Kidney Foundation and [place] [employer]ph[employer] recommendations. Blood BLOOD SPECIMEN / Unknown Venipuncture / Unknown 04/13/2025 8:45 PM CDT 04/13/2025 8:49 PM CDT Nadege Ham PA-C LAB - CHEMISTRY ORDERABLES Final Result Performing Organization Address City/State/[facility] Co de Phone Number [facility] [address] [place] [address], [facility] [phone] * ALCOHOL ETHYL BLOOD (04/13/2025 8:45 PM CDT) Ethanol (mg/dL) <10 <10 mg/dL 10:48 PM T [facility] Ethanol Calculated (g/dL) <0.010 <=0.010 g/dL 04/13/2025 10:[address] [facility] Blood BLOOD SPECIMEN / Unknown Venipuncture / Unknown 04/13/2025 8:45 PM CDT 04/13/2025 10:38 PM CDT Narrative [facility] - 04/13/2025 10:48 PM CDT Ethanol Interp <10: None Detected. Depression of DIVISION SALES MANAGER: >100 mg/dl Potentially Critical: >250 mg/dl Potentially Fatal >400 mg/dl Ethanol in the patient's blood will contribute to the osmolar gap. Ethanol's contribution to the osmolar gap can be estimated by dividing the concentration of ethanol in mg/dL by 4.6. This test is for clinical use only and does not equal a [place] for legal purposes. us Daron Gray MD LAB - CHEMISTRY ORDERABLES Final Result [facility] [address] [place] [address], [facility] [phone] * XR CHEST 1VW PORTABLE (04/13/2025 8:01 PM CDT) Anatomical Region Laterality Modality Chest Digital Radiogra phy 04/13/2025 9:13 PM CDT Narrative 04/14/2025 4:44 AM CDT PROCEDURE: XR CHEST 1VW PORTABLE, DATE/TIME OF EXAM: 04/13/2025 8:01 PM, LOCATION [facility] INDICATION: R07.9: Chest pain, unspecified type ADDITIONAL CLINICAL INFORMATION: Ordering Provider Reason For Exam: chest pain COMPARISON: Chest radiograph from 11/16/2024. FINDINGS/IMPRESSION: Small right pleural effusion versus scarring, similar to prior exam. There is no focal consolidation or pneumothorax. The cardiomediastinal silhouette is normal. No acute osseous abnormality. Defect of the posterior aspect of the right fifth rib. The report was drafted by Rebeca Burton MD (care program resident) 04/13/2025 9:13 PM. IRichar MD have personally reviewed and interpreted this examination/study. > Interpreting Provider: Richar Elias MD on 04/14/2025 4:44 AM Procedure Note Richar Elias MD - 04/14/2025 PROCEDURE: XR CHEST 1VW PORTABLE, DATE/TIME OF EXAM: 04/13/2025 8:01 PM, LOCATION [facility] INDICATION: R07.9: Chest pain, unspecified type ADDITIONAL CLINICAL INFORMATION: Ordering Provider Reason For Exam: chest pain COMPARISON: Chest radiograph from 11/16/2024. FINDINGS/IMPRESSION: Small right pleural effusion versus scarring, similar to prior exam. There is no focal consolidation or pneumothorax. The cardiomediastinal silhouette is normal. No acute osseous abnormality. Defect of theposterior aspect of the right fifth rib. The report was drafted by Rebeca Burton MD (care program resident) 04/13/2025 9:13 PM. I, Richar Elias MD have personally reviewed and interpreted this examination/study. > Interpreting Provider: Richar Elias MD on 04/14/2025 4:44 AM us Nadege Ham PA-C DIAGNOSTIC IMAGING ORDERABL ES Final Result * HIV-1 HIV-2 ANTIGEN/ANTIBODY (08/02/2019 9:08 PM CDT) HIV Antigen/Antibod y 1 & 2 Non-reacti ve Non-react dg 08/02/2019 9:[address] [facility] Comment: Neither HIV-1 p24 Antigen nor HIV-1/HIV-2 Antibodies are detected. Blood BLOOD SPECIMEN / Unknown Venipuncture / Unknown 08/02/2019 9:08 PM CDT 08/02/2019 9:18 PM CDT us Liliam Giles MD LAB - HEMATOLOGY ORDERABLES Final Result [facility] [address] [place] [address], [facility] [phone] from Last 3 Months or Most Recently Relevant to Health Maintenance Insurance [place] [facility] COMM[facility] [place] [facility] COMM[facility] [place] [facility] COMM[facility]ITY [facility]AN * Guarantor: BENJAMÍN RICHARDS Account Type Relation to Patient Date of Phone Billing Address Personal/Family 1980 [id number] [place] [id number] Advance Directives * Full Code (Latest Code Status on File) Date Activated Date Inactivated Comments 04/19/2025 5:00 PM 04/29/2025 10:02 AM * Full Code Date Activated Date Inactivated Comments 04/14/2025 1:29 AM 04/19/2025 4:28 PM * Full Code Date Activated Date Inactivated Comments 08/03/2019 1:32 AM 08/06/2019 12:47 PM
--- OUTSIDE RECORDS SUMMARY | 2025-06-01 14:31 | XMS_ITS | Encounter Summary ---
Author Organization [facility] Health Address [address] [place] [address] Care Team Providers Care Psych Rn Name Role Phone Unavailable Primary Care Provider Unavailabl e Encounter Details Date Type Department Care Team (Latest Contact Info) Description 06/01/2025 Travel Social History Tobacco Use Types Packs/Day Years Used Date Smoking Tobacco: Every Day Cigarettes Smokeless Tobacco: Never Alcohol Use Standard Drinks/Week Comments Yes 0 [...] care, and heating? Not very hard 04/19/2025 [facility] Occupat ional Health - Occupational Stress [...] any time in the past 12 m [facility], were you homeless or living in a halfway (including now)? No 04/19/2025 Sex and Gender Information Value Date Recorded Sex Assigned at Male 04/16/2025 2:44 AM CDT Legal Sex Male 5:33 AM [employer] Gender Identity Male 04/16/2025 2:44 AM CDT Sexual Orientation Straight 04/16/2025 2: 44 AM CDT documented as of this encounter Functional Status * Is person deaf or have serious hearing difficulty? Answer Date of Assessment Author No 04/19/2025 5:00 PM CDT Ilya Kirkpatrick RN * Is person blind or have serious difficulty seeing? Answer Date of Assessment Author No 04/19/2025 5:00 PM CDT Ilya Kirkpatrick, PARKER * Does person have serious difficulty walking/climbing stairs? Answer Date of Assessment Author No 04/19/2025 5:00 PM CDT Ilya Kirkpatrick, RN * Does person have difficulty dressing/bathing? Answer Date of Assessment Author No 04/19/2025 5:00 PM HEATHT Ilya Kirkpatrick, RN * Does person have difficulty doing errands alone? Answer Date of Assessment Author No 04/19/2025 5:00 PM HEATHT Ilya Kirkpatrick, PARKER documented as of this encounter Mental Status * Does person have difficulty concentrating/remembering/making decisions? Answer Entry Date Author No 04/19/2025 5:00 PM HEATHT Ilya Kirkpatrick RN documented in this encounter Plan of Treatment Upcoming Encounters Date Type Department Care Team (Late st Contact Info) Description 06/02/2025 1:45 PM CDT Office Visit [facility] [address] [facility] [facility] [place] [address] Hari Stiles MD [address] [facility] [place] [id number] documented as of this encounter Visit Diagnoses Not on filedocumented in this encounter
== END 2025-06-01 15:58 | disposition home or self-care (01) ==
PROVIDERS: Physician Assistant; Emergency Provider Emergency Medicine
DX: M79.18 Myalgia, other site (principal); T14.8XXS Other injury of unspecified body region, sequela; R00.0 Tachycardia, unspecified; R94.31 Abnormal electrocardiogram [ECG] [EKG]; W45.8XXS Other foreign body or object entering through skin, sequela
CPT/HCPCS: 36415; 71046; 71260; 74177; 80053; 81001; 83690; 85025; 93005; 96374; 99284; A9270; J3360; Q9967